=== PATIENT | female | born 1960 | race Caucasian/White ===

== ENCOUNTER 2019-04-15 16:29 | Emergency (ER) | payer OTHER ==
[~2019-04-15] VITALS: Ht 170.2 cm; Wt 108.9 kg
[~2019-04-15 16:29] MED LIST: ALEVE220 MG PO; FIBER500 MG PO; GLIPIZIDE XL10 MG PO; LISINOPRIL20 MG PO; METFORMIN HCL1000 MG PO; MULTIVITAMINS1 EAC7 PO; PROBIOTIC1 EAC2 PO; VENTOLIN HFA18 GM INH; VITAMIN C500 M2 PO; ZITHROMAX250 MG PO
[2019-04-15] MEDS ORDERED: JANUVIA50 MG PO (16:47)
--- NOTE | 2019-04-15 17:48 | EKG ---
[facility] [address] [facility] [place] [address] Signed Normal sinus rhythm Normal ECG No previous ECGs available Confirmed by GABRIEL GRACE MD ([id number]) on 04/15/2019 5:47:49 PM Electronically Signed By: GABRIEL GRACE MD 04/15/19 1748 PATIENT NAME: IRINA TRIVEDI Electrocardiogram DATE OF : 56 PHYSICIAN: GABRIEL GRACE MD REPORT #: [id number] REPORT IS CONFIDENTIAL AND NOT TO BE RELEASED WITHOUT AUTHORIZATION
[2019-04-15] MEDS ORDERED: CYCLOBENZAPRINE10 MG PO (18:46)
== END 2019-04-15 19:16 | disposition home or self-care (01) ==
LOC: ED 16:29
DX: T14.8XXA Other injury of unspecified body region, initial encounter (principal); M62.830 Muscle spasm of back; E11.9 Type 2 diabetes mellitus without complications; I10 Essential (primary) hypertension
CPT/HCPCS: 71045; 80053; 83735; 84484; 85025; 93005; 93010; 96374; 99284-25; J1885

== ENCOUNTER 2020-03-10 06:00 | Day surgery (SDC) | payer OTHER ==
[~2020-03-10] VITALS: Ht 170.2 cm; Wt 108.9 kg
--- NOTE | ~2020-03-10 | OR ---
[facility] [address] [place], [place] [address] Draft DATE OF OPERATION: 03/10/2020 SURGEON: Melanie Thomas MD PREOPERATIVE DIAGNOSES: 1. Chronic calculous cholecystitis. 2. Morbid obesity. POSTOPERATIVE DIAGNOSES: 1. Chronic calculous cholecystitis. 2. Morbid obesity. PROCEDURES: 1. Laparoscopic cholecystectomy with intraoperative cholangiogram. 2. Surgeon-directed fluoroscopy. ANESTHESIA: General endotracheal; Maria Victoria Glover CRNA, and local 10 mL of 0.25% Marcaine with epinephrine. INDICATION: This 59-year-old white woman is a patient of [facility] and has had occasional, now recurrent and increasing bouts of right upper abdominal pain going on for the past 1 or 2 months. She does have diabetes, but does not take insulin. She was previously documented as having gallstones in 2009 and ultrasound performed on November 19, 2019, showed no sign of stones, but common duct was on the border of being enlarged. There was no sign of gross intrahepatic ductal dilatation however. She does have prior history of hepatitis C. She has undergone treatment for that. She is admitted at this time to undergo cholecystectomy preferably by a laparoscopic approach. The risks of bleeding, infection, bile duct injury, need for open procedure and other unforeseen complications were reviewed in detail. She understands and wished to proceed. FINDINGS: The gallbladder was relatively large and floppy. The liver did have fatty infiltration, but no sign of cirrhosis proper. The gallbladder was challenging to remove on the basis of her obesity, but was accomplished safely. Cholangiogram was normal. The gallbladder once opened showed chronic inflammation of the mucosa, bits of stone debris, but no large stone. Cholangiogram was normal. DESCRIPTION OF PROCEDURE: PATIENT NAME: IRINA TRIVEDI OPERATIVE REPORT DATE OF : 56 REPORT #: [id number] PHYSICIAN: MELANIE THOMAS MD PCP: WOO AR[facility]A REPORT IS CONFIDENTIAL AND NOT TO BE RELEASED WITHOUT AUTHORIZATION [facility] [address] [place], [place] [address] Draft The patient was brought to the operating room and given a general endotracheal anesthetic. The abdomen was prepared with a chlorhexidine solution and draped sterilely. Preoperative antibiotic Ancef was given. Sequential compression device stockings were used and heparin subcutaneously administered. After sterile preparation and draping, a supraumbilical incision was made due to prior lower midline laparotomy incision. She had a very thick abdominal wall pannus, entry to the abdomen was challenging, but accomplished safely. Using the Severiano cannula, pneumoperitoneum was achieved to a level of 14 mmHg of carbon dioxide gas. Intraabdominal inspection showed the gallbladder to be somewhat enlarged, but not tensely distended. The liver had fatty infiltration, but no sign of cirrhosis proper. Three additional trocars were placed in usual configuration in the subxiphoid, right midclavicular, and right anterior axillary line. The gallbladder was elevated cephalad and there were noted to be adhesions of the duodenum to the infundibulum of the gallbladder, these were taken down with sharp dissection. The gallbladder was sequentially elevated and ultimately the fatty infundibulum well identified. The blunt and electrocautery dissection were used to dissect free the cystic duct and cystic artery. Cystic artery was doubly clipped and divided and a clip was applied across gallbladder cystic duct junction. Transverse choledochotomy was made in the cystic duct after clear identification and the critical view of safety assured. Egress of clear bile was noted. Using an Lagunas type cholangiocatheter, intraoperative cholangiography was undertaken showing free flow of contrast in the biliary tree with prompt emptying into the duodenum. There was no sign of biliary anomaly, filling defect or other abnormality. The cystic duct was triply clipped and divided and the gallbladder was dissected free in a retrograde fashion. Clips were applied to other cystic arterial branches as necessary. The gallbladder was placed in the endobag and extracted through the supraumbilical site without problem, opened on the back table and found to have chronic inflammatory change and bits of stone debris. There was no sign of neoplasm. Irrigation was undertaken in the subhepatic space and minimal cautery was applied to areas of punctate bleeding. Stu was applied to the subhepatic space to assure good hemostasis, excess irrigation fluid was suctioned free and the trocars removed under direct visualization showing no sign of bleeding. The supraumbilical fascial incision was reapproximated with interrupted 0 Vicryl suture. Good security of the fascial layer was noted. A 10 mL of 0.25% Marcaine with epinephrine injected in the trocar incision site. The skin closed with interrupted 3-0 Vicryl. Steri-Strips were applied. The patient was ultimately extubated and transferred to the recovery room in good condition having suffered no complications. Sponge, needle, and instrument counts were reported as correct x3. PATIENT NAME: IRINA TRIVEDI OPERATIVE REPORT DATE OF : 56 REPORT #: [id number] PHYSICIAN: MELANIE THOMAS MD PCP: WOO ARORA REPORT IS CONFIDENTIAL AND NOT TO BE RELEASED WITHOUT AUTHORIZATION [facility] [address] [address] Draft MD OZIEL Stout/TENA /[id number] cc: WERO Ann Copies: WOO ARORA ~ PATIENT NAME: IRINA TRIVEDI OPERATIVE REPORT DATE OF : 56 REPORT #: [id number] PHYSICIAN: MELANIE THOMAS MD PCP: WOO ARORA REPORT IS CONFIDENTIAL AND NOT TO BE RELEASED WITHOUT AUTHORIZATION
[~2020-03-10 06:00] MED LIST changes: +CYCLOBENZAPRINE10 MG PO; +JANUVIA50 MG PO; +STOOL SOFTENER100 M1 PO
[2020-03-10] MEDS ORDERED: ACETAMINOPHEN500 MG PO (09:34)
[2020-03-10] MEDS ORDERED: IBUPROFEN600 MG PO (09:34)
[2020-03-10] MEDS ORDERED: OXYCODON-ACETA1 EAC2 PO (09:34)
--- NOTE | 2020-03-11 11:57 | PATH ---
[facility] [address] [place], [place] [address] Signed SPECIMEN(S): A GALLBLADDER SPECIMEN SOURCE: A. GALLBLADDER CLINICAL HISTORY: Chronic cholecystitis. FINAL PATHOLOGIC DIAGNOSIS: Gallbladder, cholecystectomy: - Chronic cholecystitis. NAL:caw:C2NR MICROSCOPIC EXAMINATION: Histologic sections of all submitted blocks are examined by light microscopy. These findings, together with the gross examination, support the pathologic diagnosis. GROSS DESCRIPTION: The specimen, labeled "TS, gallbladder," is received in formalin and consists of Specimen: Previously opened gallbladder. Dimensions: 8.5 cm in length and 5.5 cm in inner circumference. Serosa: violaceous and smooth. Cystic Duct: unobstructed. Calculi: No calculi identified within the container or within the gallbladder. Mucosa: [place]-rizo, velvety. Wall thickness: 0.5 cm. Lymph node: No pericystic lymph nodes are grossly identified. Additional: None. Accounts Manager sections are submitted in cassette (A1). JS (under the direct supervision of a pathologist) The Gross Description was prepared using a voice recognition system. The report was reviewed for accuracy; however, sound-alike word errors, addition and/or deletions may occur. If there is any question about this report, please contact Client Services. PERFORMING LABORATORY: The technical component was performed by [employer], [address] [place] [id number] (Equal Opportunity Counselor: Alesia Driscoll MD; CLIA# [id number]). Professional interpretation was performed by PATIENT NAME: IRINA TRIVEDI PATHOLOGY DATE OF : 56 REPORT #: [id number] PHYSICIAN: SAM PATHOLOGY PCP: UTE ARORA REPORT IS CONFIDENTIAL AND NOT TO BE RELEASED WITHOUT AUTHORIZATION [facility] [address] [place], [place] [address] Signed [facility], [facility], [address] [facility] [address], [place] [address] (CLIA# [id number]). Diagnostician: Lillian Dnet MD Pathologist Electronically Signed 03/11/2020 Copies: ~ PATIENT NAME: IRINA TRIVEDI PATHOLOGY DATE OF : 56 REPORT #: [id number] PHYSICIAN: SAM PATHOLOGY PCP: UTE ARORA REPORT IS CONFIDENTIAL AND NOT TO BE RELEASED WITHOUT AUTHORIZATION
== END 2020-03-10 11:20 | disposition home or self-care (01) ==
LOC: DS 06:00
PROVIDERS: ATTEND Surgery
PROC: BF13YZZ Fluoroscopy of Gallbladder and Bile Ducts using Other Contrast (ICD-10-PCS; 2020-03-10)
PROC: 0FT44ZZ Resection of Gallbladder, Percutaneous Endoscopic Approach (ICD-10-PCS; principal; 2020-03-10 06:45)
DX: K80.10 Calculus of gallbladder with chronic cholecystitis without obstruction (principal); K76.0 Fatty (change of) liver, not elsewhere classified; E11.9 Type 2 diabetes mellitus without complications; I10 Essential (primary) hypertension; J45.909 Unspecified asthma, uncomplicated; Z79.899 Other long term (current) drug therapy; Z79.84 Long term (current) use of oral hypoglycemic drugs; Z88.0 Allergy status to penicillin
CPT/HCPCS: 00790; 74300; A9270; J0330; J1100; J1644; J1885; J1956; J2001; J2250; J2405; J2704; J3475; J7121; Q9967

== ENCOUNTER 2021-02-02 08:12 | Day surgery (SDC) | payer OTHER ==
[~2021-02-02] VITALS: Ht 170.2 cm; Wt 106.0 kg
[~2021-02-02 08:12] MED LIST changes: +ACETAMINOPHEN500 MG PO; -GLIPIZIDE XL10 MG PO; +GLIPIZIDE10 MG PO; +IBUPROFEN600 MG PO; +OXYCODON-ACETA1 EAC2 PO
[2021-02-02] MEDS ORDERED: VITAMIN C500 M1 PO (08:32)
[2021-02-02] MEDS ORDERED: IRON325 M1 PO (08:32)
--- NOTE | 2021-02-02 09:48 | NUR ---
02/02/21 0948 Nila Thomas 0900- PT ARRIVES TO PACU EASILY AROUSABLE TO VOICE. PT FALLS INSTANTLY BACK TO SLEEP WHEN NOT BEING TALKED TO. RESP EVEN AND UNLABORED. OXYGEN SAT HIGH 90'S TO 100% ON 3L VIA NC.
--- NOTE | 2021-02-03 06:29 | OR ---
[facility] [address] [place], [place] [address] Signed DATE OF OPERATION: 02/02/2021 SURGEON: Chey Thomson MD PREOPERATIVE DIAGNOSIS: Personal history of colonic polyps in 2016 (age 55). POSTOPERATIVE DIAGNOSIS: Nearly obstructing circumferential colonic mass (35 cm, tattoo) PROCEDURE: Sigmoidoscopy with biopsies and tattoo at 35 cm. ESTIMATED BLOOD LOSS: Minimal. INDICATIONS: Holly is a 60-year-old female, who came to us in 2016 at the age of 55. She had a colonoscopy which revealed several adenomas polyps all under 7 mm in diameter. She was asked to repeat the colonoscopy in 5 years. There is no family history of colon cancer or polyps. She has no lower GI complaints currently. In the office, I gave her a pamphlet on colonoscopy. She recalls the test quite nicely. There is risk including, but not limited to gas bloating, crampy abdominal pain, bleeding, perforation requiring surgery, and missed diagnosis. She also understands the need for IV conscious sedation. She had expressed understanding and wished to proceed. PROCEDURE NOTE: Holly was taken into our endoscopy suite and placed in the left lateral decubitus position. She was given 8 mg of Versed and 150 mcg of fentanyl to cover the case. A digital rectal exam was performed and this was unremarkable. The adult colonoscope was introduced and advanced up to 35 cm. We encountered a nearly obstructing circumferential tumor. Of course, the adult colonoscope would not pass through. Therefore, the scope was slowly withdrawn. The remainder of the sigmoid colon and rectum were unremarkable. Upon retroflexion of scope, there was no additional pathology noted above the anal canal. After this, we exchanged out the adult colonoscope for the adult gastroscope. The adult gastroscope was introduced and advanced up to the tumor at about 35 cm. Again, we could see down through the opening, but we could not get the gastroscope to pass through. Therefore, several biopsies were taken of the tumor and we left a small tattoo just distal to the tumor to cain its location. After this, the gas was suctioned out and the adult gastroscope had been withdrawn. Holly had tolerated Electronically Signed By: CHEY THOMSON MD 02/03/21 0629 PATIENT NAME: HOLLY TRIVEDI OPERATIVE REPORT DATE OF : 56 REPORT #: [id number] PHYSICIAN: CHEY THOMSON MD PCP: SHAHANA FRANCO NP REPORT IS CONFIDENTIAL AND NOT TO BE RELEASED WITHOUT AUTHORIZATION [facility] [address] [place] [id number] Signed procedure quite well. RECOMMENDATIONS: I will see Holly back in my office in 7 to 14 days to review her results. We will draw her CEA level in the recovery room. She will need a barium enema to evaluate the proximal colon. She will need a CT scan of the chest, abdomen and pelvis as well. In the end, she will need this resected. Chey Thomson MD ALB/JACL /[id number] cc: MD Shahana Azul NP Copies: CHEY THOMSON MD ~ Electronically Signed By: CHEY THOMSON MD 02/03/21 0629 PATIENT NAME: HOLLY TRIVEDI OPERATIVE REPORT DATE OF : 56 REPORT #: [id number] PHYSICIAN: CHEY THOMSON MD PCP: SHAHANA FRANCO NP REPORT IS CONFIDENTIAL AND NOT TO BE RELEASED WITHOUT AUTHORIZATION
--- NOTE | 2021-02-07 13:28 | PATH ---
[facility] [address] [place], [place] [address] Signed SPECIMEN(S): A TUMOR/MASS AT 35 CM SPECIMEN SOURCE: A. TUMOR/MASS AT 35 CM CLINICAL HISTORY: Pre: History of tubular adenomas, hyperplastic colon polyps. Post: Tumor / mass at 35 cm. MICROSCOPIC DESCRIPTION: Histologic sections of all submitted blocks are examined by light microscopy. These findings, together with the gross examination, support the pathologic diagnosis. FINAL PATHOLOGIC DIAGNOSIS: Colon, 35 cm, biopsy: - Colonic mucosa with focal low grade dysplasia, see Comment. - Negative for dysplasia or malignancy. COMMENT: The colonoscopic impression of a tumor/mass at 35 cm is noted. Multiple additional deeper levels of the biopsied tissue were examined and only a single focus of glandular dysplasia is seen at an area of mucosal erosion with reactive changes. No definitive high-grade dysplasia or carcinoma is identified. Given the colonoscopic impression, the biopsied tissue may not be automotive leasing sales representative of the entire lesion. Correlation with imaging and/or additional sampling may be helpful. As part of [employer]' Quality Improvement Program, this case was reviewed by another member of our pathology staff. NAL:cml:C2NR GROSS DESCRIPTION: The specimen, labeled "TS," and designated on the requisition "tumor, mass at 35 cm," is received in formalin and consists of three rizo soft tissue fragment(s) that measure 0.1-0.3 cm in greatest dimension. The specimen is entirely submitted in cassette (A1). Smallest fragment is minute and may not survive processing. AT (under the direct supervision of a pathologist) The Gross Description was prepared using a voice recognition system. The report was reviewed for accuracy; however, sound-alike word errors, addition and/or deletions may occur. If there is any PATIENT NAME: IRINA TRIVEDI PATHOLOGY DATE OF : 56 REPORT #: [id number] PHYSICIAN: SAM AGGARWAL PCP: CARMELLA FRANCO NP REPORT IS CONFIDENTIAL AND NOT TO BE RELEASED WITHOUT AUTHORIZATION [facility] [address] [place], [place] [address] Signed question about this report, please contact Client Services. PERFORMING LABORATORY: The technical component was performed by [employer] [address] (Tooth Clerk: Alesia Driscoll MD; CLIA# [id number]). Professional interpretation was performed by [facility], [address] [address] (CLIA# [id number]). Diagnostician: Lillian Dent MD Pathologist Electronically Signed 02/07/2021 Copies: ~ PATIENT NAME: IRINA TRIVEDI PATHOLOGY DATE OF : 56 REPORT #: [id number] PHYSICIAN: SAM AGGARWAL PCP: CARMELLA FRANCO NP REPORT IS CONFIDENTIAL AND NOT TO BE RELEASED WITHOUT AUTHORIZATION
== END 2021-02-02 10:43 | disposition home or self-care (01) ==
LOC: OPS 08:12 → DS 08:17 → OPS 09:45
PROVIDERS: ATTEND Colon & Rectal Surgery
PROC: 3E0H8GC Introduction of Other Therapeutic Substance into Lower GI, Via Natural or Artificial Opening Endoscopic (ICD-10-PCS; 2021-02-02)
PROC: 0DBM8ZX Excision of Descending Colon, Via Natural or Artificial Opening Endoscopic, Diagnostic (ICD-10-PCS; principal; 2021-02-02 09:45)
DX: D12.6 Benign neoplasm of colon, unspecified (principal); E11.9 Type 2 diabetes mellitus without complications; J45.909 Unspecified asthma, uncomplicated; I10 Essential (primary) hypertension; Z87.891 Personal history of nicotine dependence; Z88.0 Allergy status to penicillin; Z87.19 Personal history of other diseases of the digestive system; Z79.84 Long term (current) use of oral hypoglycemic drugs
CPT/HCPCS: 99153; G0500; J2250; J3010; J7121

== ENCOUNTER 2021-02-22 06:35 | Inpatient (IN) | payer OTHER ==
[~2021-02-22] VITALS: Ht 170.2 cm; Wt 105.0 kg
[~2021-02-22 06:35] MED LIST changes: +IRON325 M1 PO; +VITAMIN C500 M1 PO
--- NOTE | 2021-02-22 07:22 | NUR ---
Covid swab done to both nares
--- NOTE | 2021-02-22 15:03 | NUR ---
02/22/21 1503 Kristen Powell 1456-PATIENT ARRIVED TO PACU ON 6L MASK RR EVEN ORAL AIRWAY IN PLACE. PATIENT NONAROUSABLE. SR. IVF INFUSING. MIDLINE INCISION CDI WITH GAUZE AND TAPE SANDY CATHETER DRAINING YELLOW URINE. 1502-GLUCOSE LEVEL 270
--- NOTE | 2021-02-22 16:09 | NUR ---
PATIENT ARRIVED TO MED SURG AT 1550. PATIENT IS ON ROOM AIR AND SATS ARE BETWEEN 90-92% MIDILINE INCISION IS COVERED WITH GUAZE AND TAPE, CDI. SANDY CATHETER IN PLACE AND DRAINING CLEAR YELLOW URINE. PATIENT IS SLEEPY, BUT RESPONSIVE AND DENIES PAIN OR NEEDS AT THIS TIME. PATIENT INITIALLY HAD THE URGE TO HAVE A BM, PATIENT PLACED ON BEDPAN FOR SHORT TIME UNTIL PATIENT ENDORSED THAT SHE COULD NOT GO.
--- NOTE | 2021-02-22 16:53 | NUR ---
PATIENT NAUSEATED AND VOMITED, DENIES WANTING NAUSEA MEDICATION.
[2021-02-22] MEDS ORDERED: CICLOPIROX6.6 ML TOP (18:04)
[2021-02-22] MEDS ORDERED: LISINOPRIL-HCT1 EACH PO (18:05)
--- NOTE | 2021-02-22 18:33 | NUR ---
Vitals, I&Os are done. Patient requested another blanket. Call light is in reach.
--- NOTE | 2021-02-22 19:30 | NUR ---
IN TO GET A SET OF VITALS, WARM BLANKET PROVIDED
--- NOTE | 2021-02-22 19:44 | NUR ---
Shift report recieved from FABIO Maya, pt resting in bed safely w/ call light in reach, no needs at this time.
--- NOTE | 2021-02-22 21:30 | NUR ---
PT SITTING UP IN BED, PT CURRENTLY NAUSEOUS AND VOMITING, PRN IV NAUSEA MEDS GIVEN PER PT REQUEST/PROVIDER ORDER. EVENING ASSESMENT COMPLETED AND SCHEDULED MEDS GIVEN PER PROVIDER ORDER. PT C/O 09/24 PAIN UN ABD DUE TO VOMITING, PRN TYLENOL GIEN PER PT REQUEST/PROVIDER ORDER. PT DENIES ANY OTHER NEEDS AT THIS TIME, CALL LIGHT W/ IN REACH.
--- NOTE | 2021-02-22 23:42 | NUR ---
CALL LIGHT ANSWERED. IV PUMP ALARMING. pt WITH 100 MLS GREEN EMESIS IN BAG, CONTINUES TO VOMIT. PRN ANTIEMETIC ADMINISTERED PER POLICY. EDUCATION PROVIDED. COOL CLOTH PROVIDED, NEW EMESIS BAG. PRIMARY RN NOTIFIED. CALL LIGHT IN REACH.
--- NOTE | 2021-02-23 00:40 | NUR ---
PT RESTING IN BED SAFELY W/ CALL LIGHT IN REACH, EYES CLOSED, RR EVEN AND UNLABORED. 99% ON RA.
--- NOTE | 2021-02-23 02:00 | NUR ---
PT RESTING IN BED SAFELY W/ CALL LIGHT IN REACH. SCHEDULED MEDS GIVEN PER PROVIDER REQUEST, PT REPORTS EPISODE OF EMESIS BUT DENIES NEED FOR PRN NAUSEA MEDS.
--- NOTE | 2021-02-23 04:27 | NUR ---
Pt resting in bed safely w/ call light in reach and eyes closed, RR even and unlabored. O2 sats 98% on RA.
--- NOTE | 2021-02-23 05:53 | NUR ---
Pt rested throughout the shift, but had several episodes of emesis, PRN IV nausea meds given per pt request/provider order. IV fluids infusing per provider order. [place] w/ sufficient output, pt NPO. Pt c/o pain at beginning of shift PRN Tylenol given per pt request/provider order. VSS on RA. Midline dressing intact w/ small amount of red drainage at center.
--- NOTE | 2021-02-23 06:20 | NUR ---
IN TO ASSIST PT TO THE TOILET, PT INCONT AT THIS TIME, NEW ATTENDS ON, SMALL BM, NO FURTHER NEEDS AT THIS TIME
--- NOTE | 2021-02-23 06:58 | OR ---
[facility] [address] [place], [place] [address] Signed DATE OF OPERATION: 02/22/2021 SURGEON: Chey Thomson MD PREOPERATIVE DIAGNOSES: 1. Unspecified colonic mass at 35 cm with focal low-grade dysplasia. 2. CEA level 2.4. POSTOPERATIVE DIAGNOSES: 1. 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 2. CEA level 2.4. PROCEDURE: 1. Left colectomy with colorectal end to end anastomosis, hand-sewn in two layers. 2. Takedown the splenic flexure. In was 3.2 L crystalloid, out was 150 mL urine over 3.5 hours. ESTIMATED BLOOD LOSS: 125 mL. INDICATIONS: Holly is a 60-year-old female, who had undergone a colonoscopy back in 2016. She had tubular adenomas and hyperplastic polyps removed. She came back for followup colonoscopy. She is having pain in the right side of her abdomen. We found a nearly obstructing tumor in the left colon at 35 cm. A tattoo had been left. She had a CT scan of abdomen and pelvis and one can see some thickening there with some mild haziness in the surrounding fat. There are some small lymph nodes in that mesentery as well. No obvious distal metastatic disease. No obvious lesion proximal. We were attempting to get her barium enema performed, but she neglected to take the bowel prep. Consequently that was canceled. I had met with Holly in the office. She wanted to forego that barium enema and proceed with surgery. She is aware there could be a synchronous lesion in her colon that might need surgery in the near future. In the meantime, we tom her CEA level and it was normal at 2.4. I had given our brochure on colorectal polyps and cancer. We have been through it several times. I marked the location of her tumor. We reviewed the idea of left colectomy versus a sigmoidectomy. She understands we more than likely will need to take down her splenic flexure. We had reviewed the expected intraop and postop course. There is risk to the surgery including, but not limited to bleeding, infection, scarring, change in contour of the skin, damage to bowel, damage to the left ureter, anastomotic leak and incisional hernias and other unforeseen comorbidities. She had expressed understanding and wished to proceed. Electronically Signed By: CHEY THOMSON MD 02/23/21 0658 PATIENT NAME: HOLLY TRIVEDI OPERATIVE REPORT DATE OF : 56 REPORT #: [id number] PHYSICIAN: CHEY THOMSON MD PCP: SHAHANA FRANCO NP REPORT IS CONFIDENTIAL AND NOT TO BE RELEASED WITHOUT AUTHORIZATION [address] [address] Signed PROCEDURE NOTE: I had met with Holly in our preop area. After this, she was taken in the OR and placed in the supine position. She was placed under general endotracheal tube anesthesia. She received preoperative antibiotics along with subcutaneous heparin. SCDs were utilized. A Collado catheter was then placed with return of clear yellow urine without difficulty. She was then prepped and draped in the usual sterile fashion. She has had previous pelvic surgery through a lower midline incision. We extended that above the umbilicus with help of a 10 blade knife. This was carried down to the tissue bluntly with the cautery. We entered the abdomen above the umbilicus without difficulty. She had a few adhesions of the omentum to her midline just below the umbilicus. These were taken down with the cautery without difficulty. We took an initial look and we could see our tattoo in the colon, a little higher than what we had anticipated. Nevertheless, we placed the Bookwalter retractor and we freed up the white line of Toldt starting just below the pelvic brim and followed it up some of her scar tissue from her previous pelvic surgery the tumor. We then had to reposition our Bookwalter retractor. We extended our incision cephalad and that allowed us to access her splenic flexure. It took some additional time then to come around the splenic flexure almost to the mid transverse colon. We worked our way back down to the tumor and mobilized the colon medially all the way to the base of the mesentery. We found that we could bring the distal part of the splenic flexure all the way down to the top of the rectum. We therefore divided the distal splenic flexure and the top of the rectum with the ROSALIE 75 mm linear stapler. We then divided the mesentery between Pean clamps and 0 Vicryl ties. We dissected down into the retroperitoneum near the iliac artery and found her ureter and it was quite obvious based on the diameter and the peristalsis and so forth. We kept that in mind throughout the surgery. After that, the colon was brought down to top of the rectum and a standard end to end anastomosis was performed in two layers with Vicryl and silk sutures. It was palpably patent and quite satisfactory. We then closed the mesenteric rent in the lateral side with a with a running 2-0 Vicryl suture. There was also an opening to the lesser sac and the stomach was bulging through. We therefore closed that also with a running 2-0 Vicryl suture as well. After this, the abdomen was irrigated and suctioned out until clear. She had just a little bit of oozing in the retroperitoneum from the area that is behind and slightly below the tumor. We placed a 4 x 8 sheet of Surgicel in that area and that gave us good hemostasis. After this, the bowel was returned to its position and omentum was placed over the bowel. We then closed the midline fascia with interrupted [id number] #1 PDS sutures. The abdominal wall was injected with 0.25% bupivacaine with epinephrine. 30 mL was used. The wound was irrigated and suctioned out until clear. The dermis was reapproximated with interrupted 3-0 subcuticular Monocryl sutures. The skin edges were reapproximated with mag. Dry gauze and tape were then applied. After this, bilateral TAP blocks were placed by our anesthesia provider with the help of the ultrasound. Holly was then awakened from her anesthesia, extubated in the OR, and taken to recovery room in stable Electronically Signed By: CHEY THOMSON MD 02/23/21 0658 PATIENT NAME: HOLLY TRIVEDI OPERATIVE REPORT DATE OF : 56 REPORT #: [id number] PHYSICIAN: CHEY THOMSON MD PCP: SHAHANA FRANCO NP REPORT IS CONFIDENTIAL AND NOT TO BE RELEASED WITHOUT AUTHORIZATION [address] [address] Signed condition. MD DOLLY Azul/JACL /[id number] cc: MD Shahana Azul FNP Copies: CHEY THOMSON MD ~ Electronically Signed By: CHEY THOMSON MD 02/23/21 0658 PATIENT NAME: HOLLY TRIVEDI OPERATIVE REPORT DATE OF : 56 REPORT #: [id number] PHYSICIAN: CHEY THOMSON MD PCP: SHAHANA FRANCO NP REPORT IS CONFIDENTIAL AND NOT TO BE RELEASED WITHOUT AUTHORIZATION
--- NOTE | 2021-02-23 07:30 | NUR ---
REPORT RECEIVED. PT IN BED WITH EYES CLOSED. RESPIRATIONS EQUAL AND NONLABORED. CALL LIGHT IN REACH. SCD'S IN PLACE. PT IS NPO
--- NOTE | 2021-02-23 07:45 | NUR ---
patient in bed resting, when asked to get up to chair she stated she wanted to sleep more. she refused to get up to the chair
--- NOTE | 2021-02-23 08:45 | NUR ---
IN FOR ASSESSMENT. PT SLEEPING AND DOESN'T LIKE BEING DISTURBED. PT UNINTERESTED IN MEDICATION EDUCATION. LUNGS CLEAR. HEART SOUNDS REGULAR. MIDLINE WITH GAUZE AND TAPE WITH SOME SHADOWING PRESENT. CALL LIGHT IN REACH. MEDICAITONS ADMSINTERED.
--- NOTE | 2021-02-23 09:48 | NUR ---
MED REC COMPLETE
--- NOTE | 2021-02-23 10:20 | NUR ---
Spoke with pt and she is somewhat grumpy. Stating everyone keeps com ing and bothering her. She agrees to answer questions. She lives in [place] in a 2 story home, lives with her son. She does not use any DME. Pt owns a car and drives. Pt plans on dc to home with son when medically cleared for discharge.
--- NOTE | 2021-02-23 13:24 | NUR ---
ENCOURAGED PT TO GET OOB TO CHAIR. PT IS RESISTANT REPORTING TIREDNESS. PT IS STILL NAUSEOUS AND DRY HEAVING. NO EMESIS. PAIN IS REPORTED 5/10. PT IS REFUSING NARCOTIC PAIN MEDICATION. ZOFRAN ADMINISTERED AND CALL MADE TO DR BERTO NAVAING PAIN MANAGEMENT. TELEPHONE ORDER RECEIVED FOR IV OFIRMEV 1000MG Q8P. PT REQUSTING SANDY BE DISCONTINUED. DR THOMSON GAVE ORDER TO DC SANDY WELL. ICE CHIPS AND ICE PACK FOR ABDOMEN PROVIDED TO PT. CALL LIGHT IN REACH. DENIES NEEDS.
--- NOTE | 2021-02-23 14:00 | NUR ---
IV OFIRMEV AND SCHEDULED MEDICATIONS ADMINSTERED. PT REQUESTING TO GET BACK TO BED FOR A NAP. CALL LIGHT AND PERSONAL ITEMS WITHIN REACH. DENIES NAUSEA AT THIS TIME.
--- NOTE | 2021-02-23 17:21 | NUR ---
AMBULATED PT IN [place] TO END AND BACK. SAT PT UP IN CHAIR TO EAT ICE CHIPS. ICE PACK FOR ABDOMEN PROVIDED. CALL LIGHT IN REACH.
--- NOTE | 2021-02-23 19:39 | NUR ---
no void x7 hrs, up to br.
--- NOTE | 2021-02-23 20:05 | NUR ---
voided 300cc daRK URINE, BACK TO BE SBA, C/O FEELING NAUSEATED, MEDICATED WITH ZOFRAN 8MG IV, ICE TO ABD
--- NOTE | 2021-02-23 21:50 | NUR ---
IN TO ASSIST PT WITH VITALS, ICE PACK REFILLED FOR PT, NO FURTHER NEEDS AT THIS TIME
--- NOTE | 2021-02-23 21:58 | NUR ---
TEMP 99.6, C/O ABD PAIN, MEDICATED WITH OFIRMEV IV.
--- NOTE | 2021-02-24 03:18 | NUR ---
Up to br, voided, back to bed, on room air, abd dressing with old drainage, burping, not passing rectal gas. no bm. abd tender, evangelina, no emesis.
--- NOTE | 2021-02-24 04:47 | NUR ---
Pt on room air, midline abd surgical dressing with old drainage. abd tender, evangelina, burping but nor pasing rectal gas yet. Up to br, voiding QS. SBA. IVF infusing. Has been medicated with zofran c/o dry heaving, effective, Tylenol IV x1 with good pain to fair pain relief, NPO , tolerating ice chips. turns and repositions self in bed. flat affect, but cooperative with assessments, uses call light.
--- NOTE | 2021-02-24 05:26 | NUR ---
Ofirmev given per c/o abd pain, in bed reposition self, abd dressing in place, denies passing rectal gas
--- NOTE | 2021-02-24 06:58 | NUR ---
uP TO BR, VOIDED qs, BACK TO BED, TOLERATED WELL, ABD DRESSING IN PLACE. NPO, X ICE CHIPS. IVF INFUSING W/O PROBLEMS, NO EMESIS, STAED BURPING BUT NOT PASSING RECTAL GAS.
--- NOTE | 2021-02-24 07:18 | NUR ---
REPORT RECEIVED. PT IN BED. AWAKES WHEN THIS NURSEWALKS IN ROOM. REPORTS PAIN 11/24. DENIES NAUSEA. CALL LIGHT AND PERSONAL ITEMS WITHIN REACH.
--- NOTE | 2021-02-24 07:45 | NUR ---
PT WAS IN BED. PT REFUSED TO SIT IN THE RECLINGER FOR BREAKFAST. THIS MULTISKILL OPERATOR GAVE PT A WARM WASHCLOTH FOR THEIR FACE. WHITEBOARD WAS UPDATED. CALL LIGHT IS WITIN REACH. NO FURTHER NEEDS AT THIS TIME.
--- NOTE | 2021-02-24 10:00 | NUR ---
ASSESSMENT COMPLETED. DR THOMSON IN TO ROUND .DRESSING TO ABDOMEN DC'D. PORFIRIO IN PLACE. MIDLINE WELL APPROXIMATED. BOWEL TONES ACTIVE. PAIN REPORTED AT 11/24. TORIDOL ADMISNTERED. MEDICATIONS ADMINSTERED. PT REQUESTING TO TAKE A NAP. WILL GET OOB FOR LUNCH. PT DENIES NAUSEA. CALL LIGHT IN REACH. NO FURTHER NEEDS.
--- NOTE | 2021-02-24 12:26 | NUR ---
PT ASSISTED UP TO CHAIR. REPORTS PAIN 06/26. PLANS TO SHOWER AND AMBULATE. DRINKING BROTH NOW. NO NAUSEA AT THIS TIME. CALL LIGHT IN REACH.
--- NOTE | 2021-02-24 12:50 | NUR ---
THIS SKIVER WELT END HELPED PT TAKE A SHOWER BY COVERING THE IV, PROVIDING SHAMPOO, CONDITIONER, TOWELS, A NEW GOWN AND NEW SOCKS. PT WAS INDEPENDENT WITH SHOWER. CALL LIGHT IS WITHIN REACH. NO FURTHER NEEDS AT THIS TIME.
--- NOTE | 2021-02-24 13:22 | NUR ---
PT JUST COMPELTED SHOWER. PLAN TO AMBULATE IN HALLS. PAIN WELL CONTROLLED. NO NAUSEA.
--- NOTE | 2021-02-24 14:30 | NUR ---
THIS TAG AND LABEL CUTTER HELPED PT WALK ONE LAP AROUND MED SURG. PT DID NOT NEED ASSISSTANCE. WALK WAS WELL TOLERATED. PT IS NOW IN BED. CALL LIGHT IS WITHIN REACH. NO FURTHER NEEDS AT THIS TIME.
--- NOTE | 2021-02-24 14:30 | NUR ---
PT OUT IN [place] WITH SHOEMAKER CUSTOM. TOLERATED WELL. DID ONE LAP.
--- NOTE | 2021-02-24 14:52 | EKG ---
[facility] [address] [facility] [place], [place] [address] Signed Normal sinus rhythm Low voltage QRS Borderline ECG When compared with ECG of 03-MAR-2020 09:05, No significant change was found Confirmed by ALDEN WIGGINS DO ([id number]) on 02/24/2021 2:52:26 PM Electronically Signed By: ALDEN WIGGINS DO 02/24/21 1452 PATIENT NAME: TRIVEDIIRINA Electrocardiogram DATE OF : 56 PHYSICIAN: ALDEN WIGGINS DO REPORT #: [id number] REPORT IS CONFIDENTIAL AND NOT TO BE RELEASED WITHOUT AUTHORIZATION
--- NOTE | 2021-02-24 18:35 | NUR ---
AMBULATED PT IN HALLS. ONE LAP DONE. REPORT SOME MILD PAIN. SITTING UP IN CHAIR NOW DRINKING BROTH.
--- NOTE | 2021-02-24 20:50 | NUR ---
on room air, ivf infusing w/o problems, passing flatus, abd soft, tender to cuch, mag in place, well aproximated, pink, dry, evangelina. no bm. voiding qs. up to br with minimum of assist. tolerating clear liquids, on 1000cc fluid restrictions. IVF infusing w/o problems
--- NOTE | 2021-02-24 22:02 | NUR ---
medicated with ofermiv per c/o abd pain and h/a, in bed, up to br, voided qs, tolerating clear liquids, no emesis, passing gas. coop
--- NOTE | 2021-02-25 01:48 | NUR ---
Resting, eys closed, on room air, turns and repositions self. ivf infusing call light and fluids at bedside
--- NOTE | 2021-02-25 03:10 | NUR ---
awakes easily, passing gas, c/o abd pain, medicated with toradol 15mg iv.
--- NOTE | 2021-02-25 05:15 | NUR ---
SLEPT, MEDICATED WITH AFIRMEV AND TORADOL PER ABD PAIN, EFFECTIVE, PASSING GAS, ABD TENDER, MIDLINE ABD INCISION WITH PORFIRIO IN PLACE. VOIDING QS, SBA, IVF INFUSING W/O PROBLEMS, TOLERTING CLEAR FLUIDS WITH 1000CC FLUID RESTRICTION WELL, NO EMESIS., USES CALL LIGHT, TURNS AND REPOSITIONS SELF
--- NOTE | 2021-02-25 05:42 | NUR ---
DR THOMSON IN ROOM
--- NOTE | 2021-02-25 06:50 | NUR ---
PT ASSISTED TO THE CHAIR WITH FLOAT WELFARE ELIGIBILITY INTERVIEWER, ICE WATER PROVIDED, IV TUBINHG UNTANGLED FOR PT, NO FURTHER NEEDS AT TH TIME
--- NOTE | 2021-02-25 07:40 | NUR ---
this rn received report from rob curiel. pt sitting up to chair at this time and states that she is doing well
--- NOTE | 2021-02-25 11:09 | NUR ---
THIS RN PROVIDED PT WITH HER MORING MEDS. PT STATES THAT SHE IS HAVING SOME JOSE ALFREDO. THIS RN TO PROVIDE PT WITH REQUESTED IV TYELNOL. THIS RN DISCUSSED WITH PT THAT WE SHOULD START GETTING HER ONTO PO MEDS SO THAT SHE CAN GET USED TO THAT PRIOR TO GOING HOME. PT STATED UNDERSTANDING.
--- NOTE | 2021-02-25 12:30 | NUR ---
THIS RN IN PTS ROOM TO PROVIDE PT WITH 15MG OF TORADOL FOR PTS PAIN OF 3/10. PT BACK TO BED AT THIS TIME AND WILL GO FOR A WALK THIS AFTERNOON, PT REPORTS THAT SHE DID NOT SLEEP WELL AND IS VERY TIRED TODAY. PT ALSO REPORTS THAT SHE HAS HAD 1 LIQUID BM AND IS PASSING A LOT OF SMELLY GAS AT THIS TIME. PT IS TOELRATING HER MEALS WELL WITH NO NOTED NAUSEA AT THIS TIME
--- NOTE | 2021-02-25 15:45 | NUR ---
this rn in pts room to check on her and provide her with chicken broth and 7up. this rn to call to see if he would advance her diet to regular. md allowing pt to advance to 60gm carb and to restart pt on her metformin, verbal order to keep pt on sliding scale and accu checks to ensure tight glucose control. pt also requesting to start on po tylenol after this rn discussed with her about the possibility of going home soon- 650mg provided
--- NOTE | 2021-02-25 17:20 | NUR ---
this rn in pts room to give pt her insulin. pt up and taking out her dentures with assistance from jaylin curiel. pt states that she is having increased pain due to how she sat earlier, rates her pain 6/10. pt not able to have pain meds/ not due at this time. pt denies wanting narcs
--- NOTE | 2021-02-25 21:02 | NUR ---
Up to br, tolerated well, voided, back to bed, IVF infusing RFA, intact. On room air, clear lungs bilat, no cough, c/o abd pain/ midline incision with mag in place. pink, well aprrox, dry. DOMO, tender to touch. medicated with toradol mg IV, tolerating fluids well, no emesis.. coop wtih assessment. received 4 units ss as per orders accucheck
--- NOTE | 2021-02-25 22:57 | NUR ---
RESTING, NO FURTHER C/O DISTRESS. CALL LIGHT AT BEDSIDE
--- NOTE | 2021-02-26 00:54 | NUR ---
Resting, room air, no ditess, turns and repositons self. ivf infusing call light at hands reach
--- NOTE | 2021-02-26 02:15 | NUR ---
awakes easily, coop with assessment. passing gas. no c/o abd pain. ivf infusing. repositions self in bed, fluids and call light at bedside
--- NOTE | 2021-02-26 02:35 | NUR ---
passing gas, coop wtih assessment. abd incision withstaples, well approx, pink, dry, c/o 11/24 abd pain, medicated with tylenol 650mg po. tolerating fluids well, no emesis
--- NOTE | 2021-02-26 02:36 | NUR ---
PATIENT CALLED NURSES STATIONS REQUESTING ASSISTANCE TO BR. PATIENT NEEDS WERE MET, PATIENT WAS PROVIDED WITH ICE PACK, FRESH ICE WATER, AND PATIENT NURSE GAVE PAIN MEDS. CALL LIGHT LEFT WITHIN REACH. NO OTHER IMMEDIATE NEEDS AT THIS TIME.
--- NOTE | 2021-02-26 04:57 | NUR ---
UP TO BR, VOIDED AND HAD SEMI LIQUID BROWN BM, PASSING GAS AND INCREASED BURPING NOTED. TOLERATING FLUIDS WELL, NO EMESIS, C/O ABD PAIN, MEDICATED WITH TORADOL 15MG IV. IVF INFUSING W/O PROBLEMS. MIDLINE ABD INCISION WITH PORFIRIO IN PLACE, CDI, PINK. DOMO. CALL LIGHT AND FLUIDS AT BEDSIDE
--- NOTE | 2021-02-26 04:59 | NUR ---
PT HAS SLEPT OFF ANDON, HAS BEEN MEDICATED WITH TYLENOL X1 AND TORADOL X2 KS C/O ABD PAIN. MIDLINE ABD INCISION WITH PORFIRIO, CDI, WELL APRROXIMATED. DOMO. PASSING GAS AND HAVING BMS. TOLERATING DIET WELL, NO EMESIS. ON ROOM AIR, CLEAR LUNGS. IVF INFUSING.
[2021-02-26] MEDS ORDERED: TYLENOL EXTRA500 MG PO (09:18)
--- NOTE | 2021-02-26 09:49 | NUR ---
Every other staple removed from midline incision. Removed a total of 24 mag. Incision remains closed and no drainage. Patient tolerated well.
--- NOTE | 2021-02-28 07:42 | DS ---
[facility] [address] [place], [place] [address] Signed ADMISSION DATE: 02/22/2021 DISCHARGE DATE: 02/26/2021 FINAL DIAGNOSIS: Colonic mass/tumor at 35 cm. PROCEDURE: Left colectomy with takedown of the splenic flexure and colorectal anastomosis, hand-sewn in two layers. HOSPITAL COURSE: Holly was admitted on 02/22/2021 for her left colectomy. We did take down the splenic flexure. She has an end-to-end hand-sewn anastomosis from the colon to the rectum in two layers. She clearly has an ulcerated tumor at 35 cm. No other evidence of any metastatic disease in her abdomen. She did well both intraop and postop. She declined narcotics because of her previous history of drug abuse. She also avoids NSAIDs because of her diabetes. She has done well with Tylenol and Toradol for breakthrough pain. We did reduce the dose of Toradol because of the diabetes. She has had lots of flatus and several bowel movements at this point. She is tolerating a diabetic diet. Her abdomen is completely benign. The incision is healing well without any local signs or symptoms of infection. She has been requesting to go home this morning, which is certainly reasonable. DISCHARGE PLANS AND MEDICATIONS: Holly is going to be discharged home with her son here in [place], [place]. She will follow her usual diabetic diet at home. She will resume all her chronic medications except the iron tablets. She can resume iron in a couple months. However, her anemia may resolve now that the tumor has been removed. She will use Tylenol as she has here in the hospital for pain. She can purchase that [id number]. Again, she avoids NSAIDs because of her diabetes. She also avoids narcotics because of her previous history of drug abuse. She is welcome to perform her activities of daily living including walking up and down stairs, showering, and bathing as usual. She is not to do any heavy pushing, pulling, or lifting over 20 pounds. She can resume driving when she is comfortable. We have removed one-half of her mag. We will see her back in the office in 5 to 10 days for followup and removal of the rest of the mag. We do not have the pathology report at this time. I have reviewed this in detail with Holly. She has expressed understanding and agrees to the above plan. Electronically Signed By: CHEY THOMSON MD 02/28/21 0742 PATIENT NAME: HOLLY TRIVEDI DISCHARGE SUMMARY DATE OF : 56 REPORT #: [id number] PHYSICIAN: CHEY THOMSON MD PCP: SHAHANA FRANCO NP REPORT IS CONFIDENTIAL AND NOT TO BE RELEASED WITHOUT AUTHORIZATION [address] [address] Signed MD DOLLY Azul/JACL /[id number] cc: MD Shahana Azul Copies: CHEY THOMSON MD ~ Electronically Signed By: CHEY THOMSON MD 02/28/21 0742 PATIENT NAME: HOLLY TRIVEDI DISCHARGE SUMMARY DATE OF : 56 REPORT #: [id number] PHYSICIAN: CHEY THOMSON MD PCP: SHAHANA FRANCO NP REPORT IS CONFIDENTIAL AND NOT TO BE RELEASED WITHOUT AUTHORIZATION
--- NOTE | 2021-02-28 08:47 | PATH ---
[facility] [address] [place], [place] [address] Signed THIS IS AN ADDENDUM REPORT SPECIMEN(S): A LEFT COLON SPECIMEN SOURCE: A. 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 - Histologic grade: G2, moderately differentiated. - Tumor size: 5.4 x 4.9 x 1.0 cm. - Tumor extent: Tumor continuous with serosal surface through area of inflammation, see Comment. - Macroscopic tumor perforation: Not identified. - Lymphovascular invasion: Not identified. - Perineural invasion: Not identified. - Treatment effect: No known pre-surgical therapy. - Margins: All margins negative for invasive carcinoma, high-grade dysplasia/intramucosal carcinoma, and low grade dysplasia (proximal, distal, and radial margins). - Regional lymph nodes: Tumor present in regional lymph nodes. - Number of lymph nodes with tumor: 4. - Number of lymph nodes examined: 17. - Tumor deposits: Present, multiple focally surrounding grossly positive lymph node. - Mismatch repair (MMR) testing by IHC: Pending, to be reported by an addendum. - Pathologic stage classification (pTNM, AJCC 8th edition): pT4a pN2a. COMMENT: The invasive carcinoma is focally seen communicating with the serosa through an area of inflammation/granulation tissue, and thus is staged as pT4a. As part of [facility]' Quality Improvement Program, this case was reviewed by another member of our pathology staff. Reference: Ina Fu., Jane Arora, King TMayelinS. et al. Challenges with PATIENT NAME: HOLLY MARTINES PATHOLOGY DATE OF : 56 REPORT #: [id number] PHYSICIAN: SAM PATHOLOGY PCP: CARMELLA FRANCO NP REPORT IS CONFIDENTIAL AND NOT TO BE RELEASED WITHOUT AUTHORIZATION [facility] [address] [place], [place] [address] Signed colorectal cancer staging: results of an international study. Mod Pathol 33, 855804 (0538). [email or web address] NAL:cml:C1NR MICROSCOPIC EXAMINATION: Histologic sections of all submitted blocks are examined by light microscopy. These findings, together with the gross examination, support the pathologic diagnosis. GROSS DESCRIPTION: The specimen, labeled "Holly Martines," and designated on the requisition "left colon, stitch leung proximal end," is received in formalin and consists of one unoriented segment of large bowel that is 28.6 cm in length and has an average internal circumference of 7.5 cm. The specimen has been previously opened. A black suture is present identifying the proximal margin. The serosal surface is pink and smooth within an area of induration and black dye discoloration that is 4.0 x 3.5 cm. The area of induration displays adherent yellow-rizo adipose tissue. The mucosal surface is pink-rizo and finely granular with the usual folding pattern. The area of induration under the present at the area of induration is a centrally ulcerated, circumferential mass that is 5.4 x 4.9 x 1.0 cm. The mass is 5.7 cm from the proximal resection margin, 14.4 cm from the distal resection margin, 5.8 cm from the closest vascular root resection margin, and 1.2 cm from the closest radial resection margin (inked blue). The serosal surface in the area of induration is inked green. Sectioning through the mass reveals extension through the muscularis propria into the adjacent adipose tissue. The mass is 0.2 cm from the serosal surface. A grossly positive possible lymph node that is 0.9 cm in greatest dimension is seen 0.4 cm from the mass. This lymph node is 0.4 cm from the closest radial resection margin. Approximately 0.4 cm proximal to the mass is a pink-red polypoid portion of mucosa that is 0.6 x 0.6 x 0.4 cm. The polypoid portion of mucosa is greater than 5 cm from each resection margin. The uninvolved bowel wall has an average thickness of 0.9 cm. Upon dissection of the attached pericolonic adipose tissue multiple possible lymph nodes are grossly identified. One lymph node is within close proximity of vascular root. The adipose tissue is placed the lymph clearing fixative. Curtain Roller Assembler sections are submitted in 15 cassettes. PATIENT NAME: HOLLY MARTINES PATHOLOGY DATE OF : 56 REPORT #: [id number] PHYSICIAN: SAM AGGARWAL PCP: CARMELLA FRANCO NP REPORT IS CONFIDENTIAL AND NOT TO BE RELEASED WITHOUT AUTHORIZATION [address] [address] Signed Cassette summary: (A1) proximal resection margin, shave (A2) distal resection margin, shave (A3) vascular root resection margin, shave (A4-A5) mass to radial resection margin, perpendicular (A6) mass to one grossly positive lymph node with closest radial resection margin, perpendicular (printing supplies sales representative section of lymph node) (A7) mass to uninvolved bowel (A8) mass to serosa (A9) mass to polypoid portion of mucosa (A10) uninvolved bowel wall and one possible lymph node within close proximity of vascular root, bisected (A11) six possible lymph nodes, submitted whole (A12) two possible lymph nodes, each bisected, one arbitrarily inked (A13) one possible lymph node, bisected (A14) three possible lymph nodes, submitted whole (A15) one possible lymph node, bisected. FB (under the direct supervision of a pathologist) The Gross Description was prepared using a voice recognition system. The report was reviewed for accuracy; however, sound-alike word errors, addition and/or deletions may occur. If there is any question about this report, please contact Client Services. PERFORMING LABORATORY: The technical component was performed by [facility], [address] [place] [address] (Clinical Account Specialist: Alesia Driscoll MD; CLIA# [id number]). [facility], [address] [place] [address] (CLIA# [id number]). COMMENT: Tumor cells show no loss of nuclear expression of MMR proteins. This correlates with a low probability of microsatellite instability. However, if there is a high clinical suspicion for Spicer syndrome (hereditary non-polyposis colorectal carcinoma syndrome) in this patient, additional testing should be considered. Please contact [facility] if such testing is indicated. NAL:cml ADDITIONAL NOTES: Immunohistochemical and/or in situ hybridization studies were performed on this PATIENT NAME: HOLLY MARTINES PATHOLOGY DATE OF : 56 REPORT #: [id number] PHYSICIAN: SAM PATHOLOGY PCP: CARMELLA FRANCO NP REPORT IS CONFIDENTIAL AND NOT TO BE RELEASED WITHOUT AUTHORIZATION [facility] [address] [place], [place] [address] Signed case with the appropriate positive controls that react as expected. This test was developed and its performance characteristics determined by [facility]. It has not been cleared or approved by the U.S. Food and Drug Administration. The FDA has determined that such clearance or approval is not necessary. This test is used for clinical purposes. It should not be regarded as investigational or for research. [facility] is certified under the Clinical Laboratory Improvement Amendments of 1988 (CLIA) as qualified to perform high complexity clinical laboratory testing. REASON FOR ADDENDUM: To add results of additional testing. ADDENDUM PATHOLOGIC DIAGNOSIS: Invasive colonic adenocarcinoma of the sigmoid colon, microsatellite instability testing by IHC: - MLH1: Intact nuclear expression. - MSH2: Intact nuclear expression. - MSH6: Intact nuclear expression. - PMS2: Intact nuclear expression. INTERPRETATION: Normal pattern. ADDENDUM MICROSCOPIC EXAMINATION: A panel of four antibodies is selected which will detect 95% of microsatellite unstable carcinomas. Testing is performed at the request of Lillian Dent M.D. Block: A5. Recut HE slide is prepared from the block. The presence of neoplastic glands and non-neoplastic internal control glands or stroma is confirmed. Internal control cells for MLH1, MSH2, PMS2 and MSH6 are positive. Neoplastic gland cells show the following: - MLH1: Positive. - MSH2: Positive. - MSH6: Positive. - PMS2: Positive. NAL:cml Technical testing is performed at [facility] [place]. Professional [facility], [address], [facility], [place] [address] (CLIA# [id number]). Diagnostician: Lillian Dent MD Pathologist Electronically Signed 02/28/2021 PATIENT NAME: HOLLY MARTINES PATHOLOGY DATE OF : 56 REPORT #: [id number] PHYSICIAN: SAM PATHOLOGY PCP: CARMELLA FRANCO INFORMATION SYSTEMS PROJECT MANAGER REPORT IS CONFIDENTIAL AND NOT TO BE RELEASED WITHOUT AUTHORIZATION [facility] [address] [place], [place] [address] Signed Copies: ~ PATIENT NAME: HOLLY MARTINES PATHOLOGY DATE OF : 56 REPORT #: [id number] PHYSICIAN: SAM PATHOLOGY PCP: CARMELLA FRANCO NP REPORT IS CONFIDENTIAL AND NOT TO BE RELEASED WITHOUT AUTHORIZATION
== END 2021-02-26 10:10 | disposition home or self-care (01) | DRG 331 ==
LOC: MS 06:35 → DSVR 06:35 → MS 15:45
PROVIDERS: ADMIT Colon & Rectal Surgery; ATTEND Colon & Rectal Surgery
PROC: 0DTG0ZZ Resection of Left Large Intestine, Open Approach (ICD-10-PCS; principal; 2021-02-22 10:00)
DX: D49.0 Neoplasm of unspecified behavior of digestive system (principal); E11.9 Type 2 diabetes mellitus without complications; J45.909 Unspecified asthma, uncomplicated; I10 Essential (primary) hypertension; D63.8 Anemia in other chronic diseases classified elsewhere; E66.9 Obesity, unspecified; E83.42 Hypomagnesemia; K91.0 Vomiting following gastrointestinal surgery; E83.51 Hypocalcemia; E83.39 Other disorders of phosphorus metabolism; R58 Hemorrhage, not elsewhere classified; T45.515A Adverse effect of anticoagulants, initial encounter; M19.042 Primary osteoarthritis, left hand; K21.9 Gastro-esophageal reflux disease without esophagitis; Z20.822 Contact with and (suspected) exposure to COVID-19; M19.041 Primary osteoarthritis, right hand; Z98.890 Other specified postprocedural states; Z86.010 Personal history of colon polyps; Z90.49 Acquired absence of other specified parts of digestive tract; Z87.891 Personal history of nicotine dependence; Z88.0 Allergy status to penicillin; Z68.37 Body mass index [BMI] 37.0-37.9, adult; Z86.19 Personal history of other infectious and parasitic diseases; Y83.8 Other surgical procedures as the cause of abnormal reaction of the patient, or of later complication, without mention of misadventure at the time of the procedure; Y92.009 Unspecified place in unspecified non-institutional (private) residence as the place of occurrence of the external cause
CPT/HCPCS: 00790; 64488; 76942; 80048; 80053; 83735; 84100; 85025; 93005; 93010; C9113; C9803; J0131; J0330; J0610; J0690; J1100; J1644; J1650; J1815; J1885; J2001; J2250; J2405; J2550; J2704; J2795; J3475; J7060; J7121; U0003

== ENCOUNTER 2021-05-27 16:11 | Inpatient (IN) | payer OTHER ==
[~2021-05-27] VITALS: Ht 170.2 cm; Wt 105.1 kg
[~2021-05-27 16:11] MED LIST changes: +CICLOPIROX6.6 ML TOP; +LISINOPRIL-HCT1 EACH PO; +TYLENOL EXTRA500 MG PO
[2021-05-27] MEDS ORDERED: ONDANSETRON ODT8 MG PO (16:27)
--- NOTE | 2021-05-27 20:30 | NUR ---
IN TO GET ADMITTION VITALS, ICE WATER PROVIDE, CALL LIGHT IN PLACE, RN IN FOR ADMISSION
--- NOTE | 2021-05-27 20:46 | EKG ---
[facility] [address] [facility] [place], [place] [address] Signed Sinus tachycardia Otherwise normal ECG When compared with ECG of 15-MAR-2021 10:19, No significant change was found Confirmed by ALDEN WIGGINS DO ([id number]) on 05/27/2021 8:46:33 PM Electronically Signed By: ALDEN WIGGINS DO 05/27/212045 PATIENT NAME: IRINA TRIVEDI YOUNG Electrocardiogram DATE OF : 56 PHYSICIAN: ALDEN WIGGINS DO REPORT #: [id number] REPORT IS CONFIDENTIAL AND NOT TO BE RELEASED WITHOUT AUTHORIZATION
--- NOTE | 2021-05-27 20:55 | NUR ---
PT ARRIVED TO [facility] AT 2024 AND WAS ABLE TO MOVE OVER TO BED SBA. VS TAKEN AND ENTERED, WATER PROVIDED. PT ORIENTED TO CALL LIGHT. STARTED LR FLUID AND MAG PER ORDERS. COMPLETED ADMISSION HX. PT DENIES FURTHER NEEDS AT THIS TIME. CALL LIGHT IS CLOSE.
--- NOTE | 2021-05-27 22:30 | NUR ---
PATIENT UP TO THE BATHROOM WITH 1PSBA. PATIENT AMBULATED FINE, VOIDED, AND HAD A SMALL BM. URINE COLLECTED AND SENT TO LAB. PATIENT BACK IN BED, IV INFUSING WNL, 2ND MG+ RIDER IS RUNNING. PATIENT REALLY WANTS TO BE LEFT ALONE TO SLEEP. INFORMED PATIENT I WOULD DISTURB HER LITTLE POSSIBLE. PATIENT'S CALL LIGHT IS IN REACH AND LIGHTS TURNED DOWN.
--- NOTE | 2021-05-28 00:21 | NUR ---
PATIENT RESTING QUIETLY ON HER LEFT SIDE, RESPIRATIONS ARE REGULAR AND EVEN, EYES ARE CLOSED, CALL LIGHT IS IN REACH.
--- NOTE | 2021-05-28 01:43 | NUR ---
PATIENT UP TO THE BATHROOM TO VOID 1PSBA. PATIENT GIVEN ATTENDS SHE HAD SOME STOOL ON HER SWEAT PANTS, WHICH WERE BAGGED AND PUT WITH HER BELONGINGS. PATIENT BACK IN BED AND ICE WATER REFILLED. PATIENT HAS NO OTHER CARE NEEDS AT THIS TIME. CALL LIGHT IS IN REACH.
--- NOTE | 2021-05-28 02:12 | NUR ---
PATIENT CALLED FOR NEW ICE WATER AND THIS WAS GIVEN. PATIENT DENIED ANY OTHER NEEDS AT THIS TIME. CALL LIGHT IS IN REACH.
--- NOTE | 2021-05-28 03:16 | NUR ---
IN ROOM TO FIX BEEPING IV PUMP. IT IS NOW INFUSING FINE. PT REPORTS 5/10 HEADACHE, ADMINISTERED TYLENOL. FRESH ICEWATER PROVIDED AND PT DENIES FURTHER NEEDS. CALL LIGHT IS CLOSE.
--- NOTE | 2021-05-28 05:05 | NUR ---
IN TO ASSIST PT TO THE TOILET, BAVK TO BED, VITALS DONE, NO FURTHER NEEDS AT [facility]
--- NOTE | 2021-05-28 05:12 | NUR ---
PATIENT UP TO THE BATHROOM ONE PERSON ASSIST FROM SUNDAY ACOSTA AFTER THIS RN COMPLETED AM ASSESSMENT. VS WITHIN CALL PARAMETERS. PATIENT HAS BEEN VOIDING LARGE AMOUNTS AND KARLA IS HELPING PATIENT PUT ON A NEW ATTENDS, PATIENT HAS HAD SOME LEAKY STOOL. PATIENT HAS NO OTHER CARE NEEDS OF THIS NURSE AT THIS TIME. KARLA BRAND STAYING IN ROOM TO HELP IN THE RESTROOM.
--- NOTE | 2021-05-28 07:10 | NUR ---
BEDSIDE REPORT FROM LAWRENCE MCCARTHY, PT EYES CLOSED, RRR, CALL LIGHT IN REACH.
[2021-05-28] MEDS ORDERED: LEVOFLOXACIN750 MG PO (09:31)
== END 2021-05-28 10:30 | disposition home or self-care (01) | DRG 871 ==
LOC: ED 16:11 → MS 19:21
PROVIDERS: ADMIT Student in an Organized Health Care Education/Training Program; ATTEND Student in an Organized Health Care Education/Training Program
DX: A40.9 Streptococcal sepsis, unspecified (principal); J15.4 Pneumonia due to other streptococci; E87.1 Hypo-osmolality and hyponatremia; N17.9 Acute kidney failure, unspecified; E11.9 Type 2 diabetes mellitus without complications; J45.909 Unspecified asthma, uncomplicated; I10 Essential (primary) hypertension; Z20.822 Contact with and (suspected) exposure to COVID-19; E86.0 Dehydration; D63.0 Anemia in neoplastic disease; D69.59 Other secondary thrombocytopenia; T45.1X5A Adverse effect of antineoplastic and immunosuppressive drugs, initial encounter; Z85.038 Personal history of other malignant neoplasm of large intestine; Z92.21 Personal history of antineoplastic chemotherapy; Z87.891 Personal history of nicotine dependence; Z98.890 Other specified postprocedural states; Z88.0 Allergy status to penicillin; Z79.899 Other long term (current) drug therapy; Z79.84 Long term (current) use of oral hypoglycemic drugs
CPT/HCPCS: 71045; 80048; 80053; 80500; 81001; 83605; 83735; 85025; 93005; 93010; J0692; J1650; J1815; J1956; J3475; J7030; J7121; U0003

== ENCOUNTER 2021-06-11 13:25 | Emergency (ER) | payer OTHER ==
[~2021-06-11] VITALS: Ht 170.2 cm; Wt 102.7 kg
[~2021-06-11 13:25] MED LIST changes: +LEVOFLOXACIN750 MG PO; +ONDANSETRON ODT8 MG PO
--- OUTSIDE RECORDS SUMMARY | 2021-06-11 13:28 | XMS ---
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 E.Lanie VISIT COUNT (12 MO.) 2 [facility] TOTAL 2 NOTE: Visits indicate total known visits. 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 - Hypo-osmolality and hyponatremia - Personal history of other malignant neoplasm of large intestine - Pneumonia due to other streptococci - Pneumonia due to other streptococci - Personal history of antineoplastic chemotherapy - [facility] (current) use of oral hypoglycemic drugs - Anemia in neoplastic disease - Type 2 diabetes mellitus without complications - Other specified postprocedural states - Dehydration - Acute kidney failure, unspecified - Other m[facility] (current) drug therapy - Hypo-osmolality and hyponatremia - Other secondary thrombocytopenia - Allergy status to penicillin - Personal history of other malignant neoplasm of large intestine - Type 2 diabetes mellitus without complications - Adverse effect of antineoplastic and immunosuppressive drugs, initial encounter - Personal history of nicotine dependence - [facility] (current) use of oral hypoglycemic drugs - Personal history of nicotine dependence - Personal history of antineoplastic chemotherapy - Sepsis, unspecified organism - Unspecified asthma, uncomplicated - Streptococcal sepsis, unspecified - Other specified postprocedural states - Adverse effect of antineoplastic and immunosuppressive drugs, initial encounter - Allergy status to penicillin - Essential (primary) hypertension - Other secondary thrombocytopenia - Anemia in neoplastic disease - Essential (primary) hypertension - Dehydration - Streptococcal sepsis, unspecified - Unspecified asthma, uncomplicated - Acute kidney failure, unspecified 02/22/2021 06:[address] [facility] TYPE: Medical Surgical COMPLAINT: - LEFT COLECTOMY DIAGNOSES: - Hypomagnesemia - Body mass index [BMI] 37.0-37.9, adult - Hypomagnesemia - Personal history of colonic polyps - Gastro-esophageal reflux disease without esophagitis - Other specified postprocedural states - Vomiting following gastrointestinal surgery - Neoplasm of unspecified behavior of digestive system - Acquired absence of other specified parts of digestive tract - Anemia in other chronic diseases classified elsewhere - Type 2 diabetes mellitus without complications - Essential (primary) hypertension - Hemorrhage, not elsewhere classified - Allergy status to penicillin - Primary osteoarthritis, left hand - Hypocalcemia - Allergy status to penicillin - Body mass index [BMI] 37.0-37.9, adult - Type 2 diabetes mellitus without complications - Other surgical procedures as the cause of abnormal reaction of the patient, or of later complication, without mention of misadventure at the time of the procedure - Personal history of other infectious and parasitic diseases - Acquired absence of other specified parts of digestive tract - Other disorders of phosphorus metabolism - Hemorrhage, not elsewhere classified - Other surgical procedures as the cause of abnormal reaction of the patient, or of later complication, without mention of misadventure at the time of the procedure - Personal history of nicotine dependence - Primary osteoarthritis, right hand - Unspecified place in unspecified non-institutional (private) residence as the place of occurrence of the external cause - Personal history of nicotine dependence - Personal history of other infectious and parasitic diseases - Adverse effect of anticoagulants, initial encounter - Obesity, unspecified - Personal history of colonic polyps - Obesity, unspecified - Unspecified asthma, uncomplicated - Unspecified place in unspecified non-institutional (private) residence as the place of occurrence of the external cause - Primary osteoarthritis, left hand - Primary osteoarthritis, right hand - Adverse effect of anticoagulants, initial encounter - Other specified postprocedural states - Anemia in other chronic diseases classified elsewhere - Gastro-esophageal reflux disease without esophagitis - Other disorders of phosphorus metabolism - Essential (primary) hypertension - Unspecified asthma, uncomplicated - Vomiting following gastrointestinal surgery - Hypocalcemia [email or web address]
[2021-06-11] MEDS ORDERED: LASIX20 MG PO (15:22)
== END 2021-06-11 15:40 | disposition home or self-care (01) ==
LOC: ED 13:25
DX: E11.65 Type 2 diabetes mellitus with hyperglycemia (principal); R60.0 Localized edema; J45.909 Unspecified asthma, uncomplicated; I10 Essential (primary) hypertension; Z87.891 Personal history of nicotine dependence; Z88.0 Allergy status to penicillin; Z79.899 Other long term (current) drug therapy; Z79.84 Long term (current) use of oral hypoglycemic drugs
CPT/HCPCS: 71045; 80048; 81001; 83880; 85025; 96374; 99285-25; J1940; U0003

== ENCOUNTER 2022-06-04 08:56 | Emergency (ER) | payer OTHER ==
[~2022-06-04] VITALS: Ht 170.2 cm; Wt 107.2 kg
[~2022-06-04 08:56] MED LIST changes: +LASIX20 MG PO
--- OUTSIDE RECORDS SUMMARY | 2022-06-04 09:05 | XMS ---
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 Care History Medical/Surgical 06/14/2021 [facility] Patient was seen by PCP Shahana John on 06/13/2021 for ER follow up - Start Trulicity Solution Pen-injector, 0.75 MG/0.5ML, as directed, Subcutaneous, once weekly. 06/13/2021 [facility] - Patient is currently established with [facility]. If patient is seen in the ED during business hours. Please contact [facility] at [facility]. Care Recommendation: If this patient has had 5 or more Emergency Department visits in the last 12 months.\T\nbsp; Patient will require education on the scope and purpose of the ED as an acute care provider not a Primary Care Provider and should not be utilized for chronic conditions.\T\nbsp; These are guidelines and the provider should exercise clinical judgment when providing care. E.D. VISIT COUNT (12 MO.) [address] [facility] TOTAL 2 NOTE: Visits indicate total known visits. 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
[2022-06-04] MEDS ORDERED: BENZONATATE100 MG PO (09:09)
[2022-06-04] MEDS ORDERED: PREDNISONE20 MG PO (10:37)
== END 2022-06-04 10:59 | disposition home or self-care (01) ==
LOC: ED 08:56
DX: J44.1 Chronic obstructive pulmonary disease with (acute) exacerbation (principal); J10.1 Influenza due to other identified influenza virus with other respiratory manifestations; Z87.891 Personal history of nicotine dependence; Z88.0 Allergy status to penicillin; Z79.899 Other long term (current) drug therapy; Z79.84 Long term (current) use of oral hypoglycemic drugs; Z20.822 Contact with and (suspected) exposure to COVID-19
CPT/HCPCS: 87502; 99284; C9803; J7512; U0003

== ENCOUNTER 2022-06-15 06:05 | Day surgery (SDC) | payer OTHER ==
--- NOTE | 2022-06-04 09:57 | NUR ---
CALLED AND TALKED WITH WILLOW AT DR MEDINA OFFICE. FAXED LABS AND THEY WILL ALSO TALK WITH PCP ABOUT LABS.
[~2022-06-15] VITALS: Ht 170.2 cm; Wt 107.3 kg
[~2022-06-15 06:05] MED LIST changes: +BENZONATATE100 MG PO; +PREDNISONE20 MG PO
--- NOTE | 2022-06-15 08:19 | NUR ---
06/15/22 0819 Nila Thomas 0812- PT ARRIVES TO PACU AWAKE AND TALKING. PT REPORTS NO PAIN OR NAUSEA. RESP EVEN AND UNLABORED. OXYGEN SAT MID TO HIGH 90'S ON RA. PT ABLE TO ROLL TO HER BACK AND IS SAT UP SLIGHTLY. PT REPORTS NO DIZZINESS WITH THIS.
--- NOTE | 2022-06-15 10:14 | OR ---
[facility] [address] [place], [place] [address] Signed DATE OF OPERATION: 06/15/2022 SURGEON: Chey Thomson MD PREOPERATIVE DIAGNOSES: 1. Left colectomy in February 2021 for stage III colon cancer with end-to-end colocolonic anastomosis. 2. Personal history of colonic polyps in 2015. POSTOPERATIVE DIAGNOSES: 1. Minimal external hemorrhoids. 2. Fvnpbek-ir-vgyvayjb internal hemorrhoids. 3. Colon length (70 cm). 4. A 4 mm polyp at 45 cm (snare). 5. An 8 mm polyp at 60 cm (mid right colon/snare) - lost to retrieval. 6. A 3 mm polyps x2 at cecum/appendiceal orifice. 7. A 5 mm polyp at proximal right colon. 8. A 5 mm polyp at 56 cm. 9. A 4 mm polyp at 47 cm. 10. A 5 mm polyp at 35 cm. 11. A 3 mm polyp at 50 cm. 12. End-to-end colo-colonic anastomosis at 25 cm. PROCEDURES: 1. Colonoscopy. 2. Snare polypectomy x2. 3. Hot biopsy. ESTIMATED BLOOD LOSS: None. INDICATIONS: Holly is a 61-year-old female, who came back with two issues. She wants to have her port catheter removed. I also helped her with the sigmoid colon cancer back in January 2021. We did the left colectomy in February 2021 with an end-to-end colorectal anastomosis. This was hand-sewn in two layers end-to-end. This proved to be a stage III colon cancer. She has now completed the chemotherapy. This was a nearly obstructing lesion. Therefore, on repeat colonoscopy we did not make it up into the proximal colon. Her last colonoscopy came in 2015. She had colonic polyps removed. She has no lower GI complaints currently. I had given her a pamphlet in the office on Electronically Signed By: CHEY THOMSON MD 06/15/22 1014 PATIENT NAME: HOLLY TRIVEDI OPERATIVE REPORT DATE OF : 56 REPORT #: [id number] PHYSICIAN: CHEY THOMSON MD PCP: SHAHANA FRANCO NP REPORT IS CONFIDENTIAL AND NOT TO BE RELEASED WITHOUT AUTHORIZATION [facility] [address] [place], [place] [address] Signed colonoscopy. We had reviewed that together. She understands the nature of that test. There is risk including, but not limited to gas bloating, crampy abdominal pain, bleeding, perforation requiring surgery, and missed diagnosis. In addition, she has significant medical past medical history including her diabetes and her previous addiction to narcotics. Amazingly, she took no narcotics following an open left colectomy. In that regard, she needs monitored anesthesia care with propofol infusion. She did well in this regard previously. She had expressed understanding and wished to proceed. PROCEDURE NOTE: Holly was taken into our endoscopy suite and placed in the left lateral decubitus position. She was given monitored anesthesia care with propofol infusion per our nurse director of corporate sponsorships. A digital rectal exam was performed and she does have some small circumferential external hemorrhoids. She had good sphincter tone. There were no masses. The adult colonoscope was introduced and advanced under direct visualization of the camera up into the cecum itself. The total length of her colon is about 70 cm. She had an excellent prep. We could easily see the appendiceal orifice and ileocecal valve. We removed the above mentioned polyps with the help of hot biopsy forceps. We did use our snare at 60 cm. We thought we suctioned the polyp through our camera, but we never could find in our trap. We also used the snare back at 45 cm. There was no diverticulosis. We carefully examined the distal colon, and we think her anastomosis was right around 25 cm. We could see just a little buckling on the one side, it appears to be well healed. There was no evidence of any recurrence at this area. The scope had been withdrawn down into the rectum itself. Upon retroflexion of scope, she does have pdslspq-jw-naumthhm internal hemorrhoid columns as well. After this, the gas was suctioned out, the colonoscope removed. Holly tolerated the procedure quite well. RECOMMENDATIONS: Holly will return to my office in 7 to 10 days to review her results. She will need another colonoscopy in one year. She will always need monitored anesthesia care with propofol. Chey Thomson MD ALB/MODL /[id number] Electronically Signed By: CHEY THOMSON MD 06/15/22 1014 PATIENT NAME: HOLLY TRIVEDI OPERATIVE REPORT DATE OF : 56 REPORT #: [id number] PHYSICIAN: CHEY THOMSON MD PCP: SHAHANA FRANCO NP REPORT IS CONFIDENTIAL AND NOT TO BE RELEASED WITHOUT AUTHORIZATION [place] [phone] Signed cc: MD Shahana Fraser, Nurse Practitioner Copies: JUSTUS ELIZABETH MD ~ Electronically Signed By: CHEY THOMSON MD 06/15/22 1014 PATIENT NAME: HOLLY TRIVEDI OPERATIVE REPORT DATE OF : 56 REPORT #: [id number] PHYSICIAN: CHEY THOMSON MD PCP: SHAHANA FRANCO NP REPORT IS CONFIDENTIAL AND NOT TO BE RELEASED WITHOUT AUTHORIZATION
--- NOTE | 2022-06-15 10:17 | NUR ---
PT ALERT, ORIENTED AND HAS HAD SCOPES BEFORE. PT EXPRESSED HER DESIRE TO EAT AND GET ON WITH THE DAY. HAD PRAYER, PT HAS RIDE ARRANGED. WILL FOLLOW
--- NOTE | 2022-06-19 12:36 | PATH ---
[facility] [address] [facility] [place], [place] [address] Signed SPECIMEN(S): A COLON POLYP AT 45 CM SPECIMEN(S): B CECUM COLON POLYP SPECIMEN(S): C ASCENDING/RIGHT COLON POLYP SPECIMEN(S): D COLON POLYP AT 56 CM SPECIMEN(S): E COLON POLYP AT 47 CM SPECIMEN(S): F COLON POLYP AT 35 CM SPECIMEN(S): G COLON POLYP AT 5 CM SPECIMEN SOURCE: A. COLON POLYP AT 45 CM B. CECUM COLON POLYP C. ASCENDING/RIGHT COLON POLYP D. COLON POLYP AT 56 CM E. COLON POLYP AT 47 CM F. COLON POLYP AT 35 CM G. COLON POLYP AT 5 CM CLINICAL HISTORY: Preop: Left colectomy, CA stage 3, colon polyps. Postop: Polyps, internal/external hemorrhoids. FINAL PATHOLOGIC DIAGNOSIS: A. Colon polyp at 45 cm: - Tubular adenoma (multiple fragments). B. Cecum colon polyp: - Tubular adenoma (one fragment). C. Ascending / right colon polyp: - Tubular adenoma (one fragment). D. Colon polyp at 56 cm: - Hyperplastic polyp (one fragment). E. Colon polyp at 47 cm: - Tubular adenoma (one fragment). F. Colon polyp at 35 cm: - Tubular adenoma (one fragment). G. Colon polyp at 5 cm: - Hyperplastic polyp (two fragments). JVR:mary jo:C2NR MICROSCOPIC EXAMINATION: Histologic sections of all submitted blocks are examined by light microscopy. These findings, together with the gross examination, support the pathologic PATIENT NAME: IRINA MARTINES PATHOLOGY DATE OF : 56 REPORT #: [id number] PHYSICIAN: SAM AGGARWAL PCP: CARMELLA FRANCO NP REPORT IS CONFIDENTIAL AND NOT TO BE RELEASED WITHOUT AUTHORIZATION [facility] [address] [place], [place] [address] Signed diagnosis. GROSS DESCRIPTION: A. The specimen, labeled and designated "Conrad, colon polyp at 45 cm," is received in formalin and consists of one rizo soft tissue fragment, 1.2 cm. Specimen is sectioned and entirely submitted in (A1). B. The specimen, labeled and designated "Conrad, cecum polyp," is received in formalin and consists of two rizo soft tissue fragments, ranging from 0.1-0.2 cm. Entirely submitted in (B1). C. The specimen, labeled and designated "Conrad, ascending colon polyp," is received in formalin and consists of one rizo soft tissue fragment, 0.1 cm. Entirely submitted in (C1). D. The specimen, labeled and designated "Conrad, colon polyp at 56 cm," is received in formalin and consists of one rizo soft tissue fragment, 0.2 cm. Entirely submitted in (D1). E. The specimen, labeled and designated "Martines, colon polyp at 47 cm," is received in formalin and consists of one rizo soft tissue fragment, 0.2 cm. Entirely submitted in (E1). F. The specimen, labeled and designated "Martines, colon polyp at 35 cm," is received in formalin and consists of one rizo soft tissue fragment, 0.1 cm. Entirely submitted in (F1). G. The specimen, labeled and designated "Martines, colon polyp at 5 cm," is received in formalin and consists of two rizo soft tissue fragments, ranging from 0.1-0.2 cm. Entirely submitted in (G1). JS (under the direct supervision of a pathologist) The Gross Description was prepared using a voice recognition system. The report was reviewed for accuracy; however, sound-alike word errors, addition and/or deletions may occur. If there is any question about this report, please contact Client Services. PERFORMING LABORATORY: The technical component was performed by [facility], [address] [place] [id number] (CLIA# [id number]). Professional interpretation was performed by [facility], [address] [place] [id number] (CLIA#: [id number]). Diagnostician: Jacinto Sosa MD Pathologist Electronically Signed 06/19/2022 PATIENT NAME: IRINA MARTINES PATHOLOGY DATE OF : 56 REPORT #: [id number] PHYSICIAN: SAM AGGARWAL PCP: CARMELLA FRANCO NP REPORT IS CONFIDENTIAL AND NOT TO BE RELEASED WITHOUT AUTHORIZATION [facility] [address] [place] [address] [place], [place] [address] Signed Copies: ~ PATIENT NAME: IRINA MARTINES PATHOLOGY DATE OF : 56 REPORT #: [id number] PHYSICIAN: SAM AGGARWAL PCP: CARMELLA FRANCO NP REPORT IS CONFIDENTIAL AND NOT TO BE RELEASED WITHOUT AUTHORIZATION
== END 2022-06-15 08:50 | disposition home or self-care (01) ==
LOC: DS 06:05 → OPS 06:05 → DS 07:30 → OPS 08:50
PROVIDERS: ATTEND Colon & Rectal Surgery
PROC: 0DBH8ZX Excision of Cecum, Via Natural or Artificial Opening Endoscopic, Diagnostic (ICD-10-PCS; 2022-06-15)
PROC: 0DBK8ZX Excision of Ascending Colon, Via Natural or Artificial Opening Endoscopic, Diagnostic (ICD-10-PCS; principal; 2022-06-15 07:30)
DX: D12.0 Benign neoplasm of cecum (principal); Z88.0 Allergy status to penicillin; Z88.5 Allergy status to narcotic agent; Z87.891 Personal history of nicotine dependence; E11.9 Type 2 diabetes mellitus without complications; Z79.84 Long term (current) use of oral hypoglycemic drugs; E66.9 Obesity, unspecified; Z68.37 Body mass index [BMI] 37.0-37.9, adult; I10 Essential (primary) hypertension; Z86.010 Personal history of colon polyps; Z85.038 Personal history of other malignant neoplasm of large intestine; K64.8 Other hemorrhoids; D12.2 Benign neoplasm of ascending colon
CPT/HCPCS: 36415; 80053; J2704; J7121

== ENCOUNTER 2022-06-29 08:55 | Day surgery (SDC) | payer OTHER ==
--- NOTE | 2022-06-04 09:55 | NUR ---
FAXED LABS [facility] AND CALLED AND TALKED WITH WILLOW. WILLOW WITH TALK WITH PCP ALSO ABOUT LABS.
[~2022-06-29] VITALS: Ht 170.2 cm; Wt 107.3 kg
--- NOTE | 2022-06-29 10:49 | NUR ---
PT HAS BLOOD SUGAR MONITOR ON LEFT UPPER ARM. PT USED PHONE TO READ BLOOD SUGAR. BLOOD SUGAR READ 223. REPORTED FINDINGS TO OR NURSE LONG [place]
--- NOTE | 2022-06-29 12:05 | NUR ---
06/29/22 1205 Nila Thomas 1157- PT ARRIVES TO PACU AWAKE TO STIMULI. RESP EVEN AND UNLABORED. OXYGEN SAT HIGH 90'S TO 100% ON 6L VIA MASK. 1204- OXYGEN TITRATED OFF. PT IS AWAKE AND ABLE TO REPORT NO PAIN OR NAUSEA.
--- NOTE | 2022-06-29 12:26 | NUR ---
PT TRANSPORTED BACK TO DAY SURGERY ROOM 8. REPORT TAKEN FROM ARMANDO MCCARTHY. PT RESTING IN BED. DENIES PAIN OR NAUSEA. PT AWAKE AND ORIENTED. PT SIPPING ICE WATER AT BEDSIDE. CRACKERS AT BEDSIDE. CALL LIGHT WITHIN REACH.
--- NOTE | 2022-06-29 12:51 | NUR ---
PT RESTING IN BED. DENIES PAIN OR NAUSEA. DISCHARGE INSTRUCTIONS REVIEWED WITH PT. NO QUESTIONS OR CONCERNS. PT STATES JTAC WILL BE HERE TO HAND SHOES SEWER PT AT 1330. CALL LIGHT WITHIN REACH. WATER AT BEDSIDE.
--- NOTE | 2022-06-29 13:51 | NUR ---
PT DENIES NAUSEA, DIZZINESS, OR PAIN. IV D/C. PT TRANSPORTED OUT OF DAY SURGERY VIA WHEELCHAIR TO [employer].
--- NOTE | 2022-06-29 15:56 | OR ---
[facility] [address] [place], [place] [address] Signed DATE OF OPERATION: 06/29/2022 SURGEON: Chey Thomson MD PREOPERATIVE DIAGNOSES: 1. Stage III sigmoid colon cancer February 2021. 2. Right internal jugular qnmq-X-tohnzrrm. POSTOPERATIVE DIAGNOSES: 1. Stage III sigmoid colon cancer February 2021. 2. Right internal jugular twoo-P-pklsrrxr. PROCEDURE: Removal right internal jugular zwwl-I-nfevvksd. ESTIMATED BLOOD LOSS: None. INDICATIONS: Holly is a 61-year-old female, asked to see me for removal of her okdc-I-xkdqvmwd.. I had helped her with her stage III sigmoid colon cancer back in February 2021. She is now completed her chemotherapy. She understands removing the jkrq-F-svcyutqk is exact opposite process. We do in the operating room under sterile IV controlled conditions. There is risk to the procedure including but not limited to bleeding, infection, scarring, change in contour of the skin as well as catheter embolization requiring retrieval. She had expressed understanding and wished to proceed. DESCRIPTION OF PROCEDURE: Holly was taken in the operating room and placed in the supine position under general LMA anesthesia. She was given preoperative antibiotics along with subcutaneous heparin. SCDs were utilized. She was prepped and draped in the usual sterile fashion. We used our previous incision below the right clavicle. We opened that up sharply with our 15 blade knife. We went down around the catheter and the pseudocapsule with the help of the cautery. We were able to place our 2-0 Prolene pursestring suture around the catheter as it traveled underneath the subcutaneous tissues. The catheter was removed and we found that it was completely intact all the way to the tip. It came out quite easily. The pursestring suture had been tied down with good hemostasis. We injected local anesthetic into the operative wound. The wound was irrigated and suctioned out until clear. We closed the dermis with interrupted 3-0 subcuticular Monocryl sutures. The skin edges were reapproximated with a running 5-0 fast absorbing plain gut suture. Electronically Signed By: CHEY THOMSON MD 06/29/22 1244 Electronically Signed By: CHEY THOMSON MD 06/30/22 0725 PATIENT NAME: HOLLY TRIVEDI OPERATIVE REPORT DATE OF : 56 REPORT #: [id number] PHYSICIAN: CHEY THOMSON MD PCP: CARMELLA FRANCO NP REPORT IS CONFIDENTIAL AND NOT TO BE RELEASED WITHOUT AUTHORIZATION [facility] [address] [place] [address] Signed Dry gauze and tape were applied. Holly was awakened from her anesthesia, extubated in the OR, and taken to recovery room in stable condition. Chey Thomson MD ALB/MODL /[id number] cc: FILI Wright MD Andrew L Bower, MD Copies: JUSTUS ELIZABETH MD, ANDREW L MD ~ Electronically Signed By: CHEY THOMSON MD 06/29/22 1244 Electronically Signed By: CHEY THOMSON MD 06/30/22 0725 PATIENT NAME: HOLLY TRIVEDI OPERATIVE REPORT DATE OF : 56 REPORT #: [id number] PHYSICIAN: CHEY THOMSON MD PCP: CARMELLA FRANCO NP REPORT IS CONFIDENTIAL AND NOT TO BE RELEASED WITHOUT AUTHORIZATION
== END 2022-06-29 13:50 | disposition home or self-care (01) ==
LOC: DS 08:55
PROVIDERS: ATTEND Colon & Rectal Surgery
PROC: 0JPT3WZ Removal of Totally Implantable Vascular Access Device from Trunk Subcutaneous Tissue and Fascia, Percutaneous Approach (ICD-10-PCS; principal; 2022-06-29 11:00)
DX: Z45.2 Encounter for adjustment and management of vascular access device (principal); E11.9 Type 2 diabetes mellitus without complications; I10 Essential (primary) hypertension; J45.909 Unspecified asthma, uncomplicated; Z85.038 Personal history of other malignant neoplasm of large intestine; Z86.010 Personal history of colon polyps; Z87.891 Personal history of nicotine dependence; Z88.0 Allergy status to penicillin; Z88.5 Allergy status to narcotic agent; E66.9 Obesity, unspecified; Z68.37 Body mass index [BMI] 37.0-37.9, adult; R06.09 Other forms of dyspnea
CPT/HCPCS: 80048; J0690; J1100; J1644; J2001; J2405; J2704; J3010; J7121

== ENCOUNTER 2024-10-05 11:31 | Emergency (ER) | payer OTHER, MEDICARE ==
[~2024-10-05] VITALS: Ht 170.2 cm; Wt 103.0 kg
[~2024-10-05 11:31] MED LIST changes: +LANTUS100 UNITS/ SUB-Q; +OZEMPIC1 MG/0.71 SUB-Q; +SEMGLEE (Y100 UNIT/2 SUB-Q
[2024-10-05] MEDS ORDERED: FLUTICASONE-SA1 EAC3 (11:54)
[2024-10-05] MEDS ORDERED: FERROUS SULFAT324 MG (11:55)
[2024-10-05] MEDS ORDERED: ALBUTEROL/IPRATROPIUM 3 ML NEB INH PRN (12:00)
[2024-10-05 12:09] LABS: BASOPHILS 0.6 % (0-2); HEMATOCRIT 34.1 % (35.0-50.0); HEMOGLOBIN 11.6 g/dL (12.0-18.0); MCH 29.7 (27-36); MCV 87.4 fl (81-99); MONOCYTES 6.2 % (0-12); NEUTROPHILS 69.2 % (39-80); PLATELET COUNT 152 K/uL (140-440); RDW 14.3 (10.5-15.0)
[2024-10-05 12:31] LABS: ALBUMIN 3.9 g/dL (3.4-5.0); BILIRUBIN, TOTAL 0.8 mg/dL (0.2-1.0); BUN/CREATININE RATIO 32.02 (6.0-28.6); CALCIUM 8.9 mg/dL (8.5-10.1); CREATININE, SERUM 1.78 mg/dL (0.55-1.02); MAGNESIUM 1.8 mg/dL (1.8-2.4); PROTEIN, TOTAL 7.8 g/dL (6.4-8.2)
[2024-10-05 17:48] VITALS: BP 109/58
[2024-10-05] MEDS ORDERED: HYDROCHLOROTH12.5 MG PO (17:50)
--- NOTE | 2024-10-05 19:13 | EKG ---
[facility] [address] [facility] [place] [facility] [place] [address] Signed Normal sinus rhythm Normal ECG When compared with ECG of 09-SEP-2023 08:37, No significant change was found Confirmed by Dk Shelby MD ([id number]) on 10/05/2024 7:13:01 PM Electronically Signed By: DK SHELBY MD 10/05/241912 PATIENT NAME: IRINA TRIVEDI YOUNG Electrocardiogram DATE OF : 56 PHYSICIAN: DK SHELBY MD REPORT #: [id number] REPORT IS CONFIDENTIAL AND NOT TO BE RELEASED WITHOUT AUTHORIZATION
== END 2024-10-05 17:55 | disposition home or self-care (01) ==
LOC: ED 11:31
PROVIDERS: Emergency Medicine
DX: R06.02 Shortness of breath (principal); E11.9 Type 2 diabetes mellitus without complications; J45.909 Unspecified asthma, uncomplicated; I10 Essential (primary) hypertension; Z87.891 Personal history of nicotine dependence; Z88.0 Allergy status to penicillin; Z79.899 Other long term (current) drug therapy; Z79.84 Long term (current) use of oral hypoglycemic drugs; Z79.4 Long term (current) use of insulin
CPT/HCPCS: 36415; 71045; 80053; 83735; 83880; 84484; 85025; 93005; 93010; 99285-25

== ENCOUNTER 2024-12-10 08:20 | Day surgery (SDC) | payer OTHER, MEDICARE ==
[2024-12-02 08:14] VITALS: BP 127/53
[~2024-12-10] VITALS: Ht 170.2 cm; Wt 104.5 kg
[~2024-12-10 08:20] MED LIST changes: +ADVAIR 100-501 EACH INH; +FERROUS SULFAT324 MG; +FLUTICASONE-SA1 EAC3; +HYDROCHLOROTH12.5 MG PO; +IBLOOD GLUCOSE TEST STRIP 1 EA TEST VI PRN; +IPRAT-ALBUT 0.5-3 ML INH; +LACTATED RINGER'S 1,000 ML IV SCH; +LANTUS SOL100 UNIT/1 SUB-Q; +LIDOCAINE HCL 1% 5 ML SDV INJ ONE
[2024-12-10 08:40] VITALS: BP 116/64
[2024-12-10] MEDS ORDERED: METFORMIN HCL1000 M1 PO (08:43)
[2024-12-10 09:10] LABS: BASOPHILS 0.4 % (0.1-1.2); BASOPHILS, ABSOLUTE 0.03 K/uL (0.01-0.08); EOSINOPHILS 2.7 % (0.7-5.8); EOSINOPHILS, ABSOLUTE 0.18 K/uL (0.04-0.36); HEMATOCRIT 33.8 % (34.1-44.9); HEMOGLOBIN 10.9 g/dL (11.2-15.7); LYMPHOCYTES 20.4 % (19.3-51.7); LYMPHOCYTES, ABSOLUTE 1.37 K/uL (1.18-3.74); MCH 28.9 PG (25.6-32.2); MCHC 32.2 g/dL (32.2-35.5); MCV 89.7 fL (79.4-94.8); MONOCYTES 6.7 % (4.7-12.5); MONOCYTES, ABSOLUTE 0.45 K/uL (0.24-0.86); NEUTROPHILS 69.5 % (34.0-71.1); NEUTROPHILS, ABSOLUTE 4.68 K/uL (1.56-6.13); PLATELET COUNT 180 K/uL (182-369); RBC 3.77 M/uL (3.93-5.22)
[2024-12-10 09:27] LABS: ALBUMIN 3.4 g/dL (3.4-5.0); ALBUMIN/GLOBULIN RATIO 0.89 (1.1-2.4); ANION GAP 13.1 (7-21); BUN/CREATININE RATIO 19.76 (6.0-28.6); CALCIUM 9.2 mg/dL (8.5-10.1); CREATININE, SERUM 0.86 mg/dL (0.55-1.02); POTASSIUM 4.1 mmol/L (3.5-5.1); PROTEIN, TOTAL 7.2 g/dL (6.4-8.2)
--- NOTE | 2024-12-10 09:27 | NUR ---
had glucose monitor on. friend is about 10 min away for ride home.
[2024-12-10] MEDS ORDERED: DEXTROSE 5% 500 ML IV ONE (10:15)
--- NOTE | 2024-12-10 10:15 | NUR ---
BLOOD GLUCOSE 74 ON PERSONAL MONITOR FURNACE CHARGER ADVISED D5 KATHRINE SEE EMAR.
--- NOTE | 2024-12-10 11:26 | NUR ---
CHECKED GLUCOSE AND PERSONAL MONITOR AND IS 82. UP TO BR.
[2024-12-10] MEDS ORDERED: propofoL 200 MG/20 ML VIAL ONE (11:58)
[2024-12-10] MEDS ORDERED: LIDOCAINE HCL 2% 5 ML SDV ONE (11:58)
--- NOTE | 2024-12-10 12:21 | NUR ---
12/10/24 1221 Moon Pelayo 1208-PT ARRIVES TO PACU, VIA STRETCHER, PT RESTING ON LT SIDE, PT NOT RESPONSIVE TO STIMULI, VSS ON 10L VIA MASK, RR EVEN AND UNLABORED. 1210-PT CBG AT BEDSIDE 70, ANESTHESIA NOTIFIED. 1215-PT AWAKENS ON OWN, DENIES PAIN OR NAUSEA, TITRATED TO RA, VS REMAIN STABLE, PT ENCOURAGED TO PASS GAS.
[2024-12-10 12:33] VITALS: BP 120/60
--- NOTE | 2024-12-14 14:31 | PATH ---
[facility] [address] [facility] [place], [place] [address] Signed SPECIMEN(S): A COLON POLYP AT 40 CM SPECIMEN(S): B COLON POLYP AT 35 CM SPECIMEN SOURCE: A. COLON POLYP AT 40 CM B. COLON POLYP AT 35 CM CLINICAL HISTORY: Screening. Post-polyps x 2 A/B) polyp FINAL PATHOLOGIC DIAGNOSIS: A. Colon polyp at 40 cm: - Hyperplastic polyp (one fragment). B. Colon polyp at 35 cm: - Hyperplastic polyp (two fragments). JVR:clv MICROSCOPIC EXAMINATION: Histologic sections of all submitted blocks are examined by light microscopy. These findings, together with the gross examination, support the pathologic diagnosis. GROSS DESCRIPTION: A. The specimen, labeled and designated "Lamine Martines, colon polyp at 40 cm," is received in formalin and consists of one rizo soft tissue fragment, 0.6 cm. Entirely submitted in (A1). B. The specimen, labeled and designated "Conrad T, colon polyp at 35 cm," is received in formalin and consists of two rizo soft tissue fragments, ranging from 0.3-0.4 cm. Entirely submitted in (B1). AB (under the direct supervision of a pathologist) The Gross Description was prepared using a voice recognition system. The report was reviewed for accuracy; however, sound-alike word errors, addition and/or deletions may occur. If there is any question about this report, please contact Client Services. PERFORMING LABORATORY: Technical component was performed by [facility], [address] [place] [id number] (CLIA# [id number]). Professional interpretation was performed by [facility], [address] [place] [address], [place] [address] (CLIA#: [id number]). PATIENT NAME: IRINA MARTINES PATHOLOGY DATE OF : 56 REPORT #: [id number] PHYSICIAN: SAM PATHOLOGY PCP: CARMELLA FRANCO NP REPORT IS CONFIDENTIAL AND NOT TO BE RELEASED WITHOUT AUTHORIZATION [address] [place] [address] Signed Diagnostician: Jacinto Sosa MD Pathologist Electronically Signed 12/14/2024 Copies: ~ PATIENT NAME: IRINA MARTINES PATHOLOGY DATE OF : 56 REPORT #: [id number] PHYSICIAN: SAM PATHOLOGY PCP: CARMELLA FRANCO NP REPORT IS CONFIDENTIAL AND NOT TO BE RELEASED WITHOUT AUTHORIZATION
--- NOTE | 2024-12-22 09:19 | OR ---
[facility] [address] [facility] [place], [place] [address] Signed DATE OF OPERATION: 12/10/2024 SURGEON: Justus Shea DO PREOPERATIVE DIAGNOSIS: Colon cancer screening. POSTOPERATIVE DIAGNOSIS: Colon cancer screening with diverticulosis, polyp at 35 and 40 cm, and poor bowel prep. PROCEDURE PERFORMED: Colonoscopy with biopsy of polyps at 35 and 40 cm. ANESTHESIA: IV sedation. ESTIMATED BLOOD LOSS: None. DRAINS: None. COMPLICATION: None. DESCRIPTION OF PROCEDURE: The patient was brought to the GI lab, placed in supine position. After induction of IV sedation through the Olympus video endoscope was introduced into the rectum, rectosigmoid noted without prep was grossly unprepared and inadequate aspiration of the liquid colonic stool as the scope was then advanced through the sigmoid colon, descending colon, transverse colon, into the ascending colon and the cecum was mostly cleared. At this point was a very poor prep. The cecum and ascending colon were without any lesions, ulceration, intrinsic or extrinsic mass. Scope was brought back to the hepatic flexure, which was unremarkable. Transverse colon had no intrinsic or extrinsic masses noted. No lesions or ulceration appreciated. Scope was brought back to the splenic flexure into the descending colon, no intrinsic or extrinsic masses were appreciated. It should be noted that the entire time of the withdrawal of the scope with inspection, irrigation, and significant aspiration of clear liquid stool had to be performed to fully visualize the mucosal surfaces. Scope was brought back into the sigmoid colon. Approximately 40 cm of broad-based polyp was identified. Multiple Electronically Signed By: JUSTUS SHEA DO 12/22/24 0919 PATIENT NAME: IRINA TRIVEDI OPERATIVE REPORT DATE OF : 56 REPORT #: [id number] PHYSICIAN: JUSTUS SHEA DO PCP: CARMELLA FRANCO NP REPORT IS CONFIDENTIAL AND NOT TO BE RELEASED WITHOUT AUTHORIZATION [facility] [address] [place], [place] [address] Signed biopsies were taken, passed off the field for pathologic review. The scope was then brought back further into the sigmoid colon approximately 35 cm and another flat broad-based polyp was identified. Multiple biopsies were taken and it was passed off the field for pathologic review. There were scattered diverticula in the sigmoid colon. No evidence of diverticulitis was noted. No other intrinsic or extrinsic mass appreciated. The rectosigmoid was unremarkable. Scope was removed. The patient tolerated the procedure well, taken to recovery in satisfactory condition. Justus Shea DO RS/MODL /[id number] Copies: ~ Electronically Signed By: JUSTUS SHEA DO 12/22/24 0919 PATIENT NAME: IRINA TRIVEDI OPERATIVE REPORT DATE OF : 56 REPORT #: [id number] PHYSICIAN: JUSTUS SHEA DO PCP: CARMELLA FRANCO NP REPORT IS CONFIDENTIAL AND NOT TO BE RELEASED WITHOUT AUTHORIZATION
== END 2024-12-10 12:40 | disposition home or self-care (01) ==
LOC: DS 08:20
PROVIDERS: Registered Nurse; ATTEND Surgery
PROC: 0DBN8ZZ Excision of Sigmoid Colon, Via Natural or Artificial Opening Endoscopic (ICD-10-PCS; principal; 2024-12-10 09:30)
DX: Z12.11 Encounter for screening for malignant neoplasm of colon (principal); K63.5 Polyp of colon; K57.30 Diverticulosis of large intestine without perforation or abscess without bleeding; J45.909 Unspecified asthma, uncomplicated; I10 Essential (primary) hypertension; E11.9 Type 2 diabetes mellitus without complications; Z79.84 Long term (current) use of oral hypoglycemic drugs; Z79.899 Other long term (current) drug therapy; Z79.4 Long term (current) use of insulin; Z88.0 Allergy status to penicillin
CPT/HCPCS: 00812; 36415; 80053; 85025; J2003; J2704; J7060; J7121